=== PATIENT | male | born 1960 | race Caucasian/White ===

== ENCOUNTER 2017-04-20 11:56 | Emergency (ER) | payer BC, OTHER ==
[~2017-04-20] VITALS: Ht 188 cm; Wt 109.0 kg
[~2017-04-20 11:56] MED LIST: FLEC150T PO; LACT10CA3 PO; MELA1TAB5 PO; METO25TA3 PO; MULT-220 PO; OMEG10007 PO; RIVA1TAB4 PO
[2017-04-20 12:07] VITALS: TEMP 36.8; Ht 188 cm; Wt 109.0 kg
[2017-04-20 12:24] VITALS: O2SAT 95
--- NOTE | 2017-04-20 13:46 | EMERGENCY ROOM VISIT NOTE ---
History Report prepared by Veronica: Piyush Lenz Under the Supervision of: Dr. Karri Cervantes M.D. First contact with patient: 12:44 Chief Complaint: CARDIAC ASSESSMENT Stated Complaint: CHEST PAIN, DR REFERRED Nursing Triage Summary: pt reports he went to his cardiology office today because yesterday he was feeling bery anxious and has been dizzy at times. pt reports indigestion "but i haven't eaten since last night." pt denies any pain or shortness of breath at this time. pt reports hx of a-fib. History of Present Illness The patient is a 56 year old white male with a past medical history of atrial fibrillation who presents to the ED with intermittent lightheadedness for four days [employer]. Positive lightheadedness, anxiety, and indigestion. Negative chest pain, shortness of breath, recent travels, or leg swelling. He notes his blood pressure has been fluctuating. He recently saw his PCP and was seen for a cardiac assessment. He notes he had an ECG and there were irregularities. He was advised to come to the ED for evaluation. He denies any recent changes in his medication. He regularly takes Xarelto. He notes that he drinks caffeinated tea and he occasionally drinks alcohol. He notes he had a sinus infection and completed an antibiotic treatment of Doxycycline one week ago. He denies any other cardiac issues. Source of History: patient Position: other (global ) Quality: other (lightheadedness ) Timing: intermittent Associated Symptoms: No chest pain, No SOB Note: He notes lightheadedness, anxiety, and indigestion. He denies any recent travels or leg swelling. Review of Systems See HPI for pertinent positives and negatives. A total of ten systems were reviewed and were otherwise negative. Past Medical & Surgical Medical Problems: (1) Hernia (2) HTN (hypertension) Family History Diabetes mellitus FH: CVA (cerebrovascular accident) Heart disease Social History Smoking Status: Never Smoker Smokeless Tobacco Use: No Alcohol Use: occasionally Drug Use: none Marital Status: Housing Status: lives with family Occupation Status: employed Current/Historical Medications Scheduled Fish Oil ([place]-3), 1 CAP PO DAILY Flecainide Acetate (Flecainide Acetate), 150 MG PO BID Lactobacillus-Inulin (Culturelle), 1 CAP PO QAM Melatonin (Kp Melatonin), 1 TAB PO HS Metoprolol Succ (Toprol Xl) (Toprol-Xl), 12.5 MG PO QPM Multiple Vitamins W/ Minerals (Multi For Him), 1 TAB PO QAM Rivaroxaban (Xarelto), 1 TAB PO DAILY Allergies Coded Allergies: Amoxicillin (Unverified Allergy, Unknown, "DOESNT WORK", 04/20/17) NO KNOWN DRUG ALLERGIES (Verified Allergy, Unknown, none, 12/06/14) Uncoded Allergies: MOLD (Allergy, Mild, SHORTNESS OF BREATH, 10/30/15) TREE POLLEN (Allergy, Mild, SHORTNESS OF BREATH, 10/30/15) Physical Exam Vital Signs Date Time Temp Pulse Resp B/P (MAP) Pulse Ox O2 Delivery O2 Flow Rate FiO2 04/20/17 16:50 64 18 180/97 94 04/20/17 15:44 66 18 196/99 96 Room Air 04/20/17 13:47 65 18 151/87 95 Room Air 04/20/17 12:38 65 04/20/17 12:32 64 18 151/83 96 Room Air 04/20/17 12:30 95 Room Air 04/20/17 12:24 95 Room Air 04/20/17 12:07 36.8 61 20 184/91 97 Room Air Physical Exam GENERAL: Awake, alert, well-appearing, NAD HENT: Normocephalic, atraumatic. EYES: Normal conjunctiva. Sclera non-icteric. NECK: Supple. No nuchal rigidity. FROM. RESPIRATORY: CTAB, no rhonchi, wheezing, crackles CARDIAC: RRR, no MRG ABDOMEN: Soft, NTND, BS+ MSK: No chest wall TTP, no LE edema NEURO: GCS 15, CN 2-12 intact, moves all 4s on command SKIN: No rash or jaundice noted. Medical Decision & Procedures ER Provider Diagnostic Interpretation: Radiology results as stated below per my review and radiologist interpretation: CHEST ONE VIEW PORTABLE CLINICAL HISTORY: Chest pain. COMPARISON STUDY: Chest radiograph August 05, 2014. FINDINGS: Lung volumes are normal. There is no pneumothorax or pleural effusion. There is a possible 2.4 cm left midlung nodule. Cardiac size is within normal limits. There is no evidence of pulmonary edema. IMPRESSION: 1. Possible 2.4 cm left midlung nodule. This could reflect summation artifact however a pulmonary nodule could appear similar. A chest CT is recommended. 2. No acute cardiopulmonary findings. Electronically signed by: Nuno George M.D. 04/20/2017 1:50 PM Dictated Date/Time: 04/20/2017 1:48 PM Laboratory Results 04/20/17 12:25 Red Blood Count 5.45, Mean Corpuscular Volume 90.3, Mean Corpuscular Hemoglobin 32.1, Mean Corpuscular Hemoglobin Concent 35.6, Mean Platelet Volume 10.7, Neutrophils (%) (Auto) 60.8, Lymphocytes (%) (Auto) 25.9, Monocytes (%) (Auto) 11.3, Eosinophils (%) (Auto) 0.7, Basophils (%) (Auto) 0.9, Neutrophils # (Auto ) 4.18, Lymphocytes # (Auto) 1.78, Monocytes # (Auto) 0.78, Eosinophils # (Auto ) 0.05, Basophils # (Auto) 0.06 04/20/17 12:25 Test 04/20/17 12:25 04/20/17 12:47 White Blood Count 6.88 K/uL (4.8-10.8) Red Blood Count 5.45 M/uL (4.7-6.1) Hemoglobin 17.5 g/dL (14.0-18.0) Hematocrit 49.2 % (42-52) Mean Corpuscular Volume 90.3 fL (80-100) Mean Corpuscular Hemoglobin 32.1 pg (25-34) Mean Corpuscular Hemoglobin Concent 35.6 g/dl (32-36) Platelet Count 165 K/uL (130-400) Mean Platelet Volume 10.7 fL (7.4-10.4) Neutrophils (%) (Auto) 60.8 % Lymphocytes (%) (Auto) 25.9 % Monocytes (%) (Auto) 11.3 % Eosinophils (%) (Auto) 0.7 % Basophils (%) (Auto) 0.9 % Neutrophils # (Auto) 4.18 K/uL (1.4-6.5) Lymphocytes # (Auto) 1.78 K/uL (1.2-3.4) Monocytes # (Auto) 0.78 K/uL (0.11-0.59) Eosinophils # (Auto) 0.05 K/uL (0-0.5) Basophils # (Auto) 0.06 K/uL (0-0.2) RDW Standard Deviation 43.2 fL (36.4-46.3) RDW Coefficient of Variation 13.2 % (11.5-14.5) Immature Granulocyte % (Auto) 0.4 % Immature Granulocyte # (Auto) 0.03 K/uL (0.00-0.02) Prothrombin Time 10.9 SECONDS (9.0-12.0) Prothromb Time International Ratio 1.0 (0.9-1.1) Activated Partial Thromboplast Time 27.0 SECONDS (21.0-31.0) Partial Thromboplastin Ratio 1.0 Anion Gap 7.0 mmol/L (3-11) Est Creatinine Clear Calc Drug Dose 119.3 ml/min Estimated GFR () 108.1 Estimated GFR (Non- 93.3 BUN/Creatinine Ratio 12.0 (10-20) Calcium Level 9.1 mg/dl (8.5-10.1) Phosphorus Level 2.4 mg/dl (2.5-4.9) Magnesium Level 2.0 mg/dl (1.8-2.4) Total Bilirubin 0.6 mg/dl (0.2-1) Direct Bilirubin 0.1 mg/dl (0-0.2) Aspartate Amino Transf (AST/SGOT) 25 U/L (15-37) Alanine Aminotransferase (ALT/SGPT) 56 U/L (12-78) Alkaline Phosphatase 63 U/L (45-117) Troponin I < 0.015 ng/ml (0-0.045) Pro-B-Type Natriuretic Peptide 31 pg/ml (0-900) Total Protein 7.9 gm/dl (6.4-8.2) Albumin 4.0 gm/dl (3.4-5.0) Lipase 412 U/L (73-393) Urine Color YELLOW Urine Appearance CLEAR (CLEAR) Urine pH 7.0 (4.5-7.5) Urine Specific [place] 1.009 (1.000-1.030) Urine Protein NEG (NEG) Urine Glucose (UA) NEG (NEG) Urine Ketones NEG (NEG) Urine Occult Blood TRACE (NEG) Urine Nitrite NEG (NEG) Urine Bilirubin NEG (NEG) Urine Urobilinogen NEG (NEG) Urine Leukocyte Esterase NEG (NEG) Urine WBC (Auto) 0 /hpf (0-5) Urine RBC (Auto) 0-4 /hpf (0-4) Urine Hyaline Casts (Auto) 0 /lpf (0-5) Urine Epithelial Cells (Auto) 0-5 /lpf (0-5) Urine Bacteria (Auto) NEG (NEG) Laboratory results reviewed by me ECG Indication: other (lightheadedness) Rate (beats per minute): 61 Rhythm: sinus rhythm Findings: 1st degree AV block, RBBB, T-wave inversion (Inferior and Lateral ), other (Prolonged VA. Wide QRS) Comparison ECG Date: October 2016 Change: no significant change ED Course 1309: The patient was evaluated in room B8. A complete history and physical exam was performed. 1358: I reassessed the patient at this time. He is resting comfortably, though is anxious. 1600: I spoke with Dr. Castillo, manager truck. We discussed the patients case. 1620: I reassessed the patient at this time. He is feeling better and resting comfortably. I discussed the results and treatment plan with the patient. I answered all pertaining questions that he had. He expressed understanding and verbalized agreement. The patient will be discharged home. Medical Decision The patient is a 56 year old white male with a past medical history of atrial fibrillation who presents to the ED with intermittent lightheadedness for four days [employer]. Prior records/ancillary studies reviewed. Triage Nursing notes reviewed. The patient's history was concerning for chest pain. Differential diagnosis: Etiologies such as cardiac ischemia, aortic dissection, pulmonary embolism, pneumonia, pneumothorax, musculoskeletal, infections, pericarditis, myocarditis , esophageal rupture, gastrointestinal, as well as others were entertained. Patient was seen and evaluated the bedside. Patient did complain of some mild lightheadedness that was feeling yesterday. Patient did have some questionable palpitations. Patient of note did recently have alcohol and did have chocolate which she normally does not have. Patient does drink tea but no changes. Patient states that he spoke with the manager truck who recommended that he take an extra dose of his flecainide. Patient states that his symptoms are more or less resolved at this time. However, the patient did go to the clinic today at which point he did have an EKG which the physician's assistant coach thought was concerning and suggested that he come here. Patient did have a repeat EKG was completed which did show some T-wave inversions which appeared chronic. Patient does have an old right bundle branch block and first-degree AV block which is also old. Patient had no complaints of chest pain or shortness of breath. Patient's blood work was completed which did not show any acute abnormality. I did speak with the manager truck on-call who agreed that the patient does not need to stay in the hospital this time. Patient was told to continue his medications. Patient did have noted elevated blood pressure. Patient was told he could take an extra dose of his Toprol provided he could take his pulse and it was greater than 60 provided his blood pressure was greater than 160-180 systolic. Patient was told that if he had any symptoms like headache shortness of breath or chest pain to return for further evaluation. Patient was also told to abstain from chocolate and alcohol as these may have precipitated his symptoms. Patient's chest x-ray did show questionable pulmonary nodule for which she should follow up as an outpatient. Patient was deemed suitable for outpatient follow-up and treatment at this time. Patient was given strict follow-up, discharge, and return precautions. All questions were answered. Patient was deemed suitable for outpatient follow- up at this time. Patient agreed with the plan of care and was safely discharged home. Medication Reconcilliation Current Medication List: was personally reviewed by me Blood Pressure Screening Patient's blood pressure: Elevated blood pressure Blood pressure disposition: Referred to PCP Consults Time Called: 1524 Consulting Physician: Dr. Castillo, manager truck Returned Call: [address] Castillo, manager truck. We discussed the patients case. Impression Primary Impression: Light-headed Additional Impression: Hypertension Scribe Attestation The scribe's documentation has been prepared under my direction and personally reviewed by me in its entirety. I confirm that the note above accurately reflects all work, treatment, procedures, and medical decision making performed by me. Departure Information Dispostion Home / Self-Care Referrals Brandie Welsh M.D. (PCP) Forms IMPORTANT VISIT INFORMATION Patient Instructions Atrial Fibrillation Dc, Hypertension Dc, My [facility] Additional Instructions Please return to the emergency department if you have worsening or recurrent symptoms not amenable to at-home treatment. Please call for a follow-up appointment with her primary care physician. Please take your medications as prescribed. If you have other concerns and/or complaints please feel free to also call your primary care physician's office or return the ED for further evaluation, management, and treatment. You were found to have an elevated blood pressure today (>120 sytolic or >90 diastolic). Per medicare guidelines, you need to follow up with this blood pressure screening with your Primary Care Physician (PCP). For a new PCP call [phone]. Take your medications as prescribed. You may take 25 mg of your Toprol. Please ensure to take your pulse prior to taking her medication and do not take it if you're heart rate is less than 60. Please follow-up with your primary care and/or your manager truck as discussed. You have been examined and treated today on an emergency basis only. This is not a substitute for, or an effort to provide, complete comprehensive medical care. It is impossible to recognize and treat all injuries or illnesses in a single emergency department visit. It is therefore important that you follow up closely with [facility], your PCP, and/or your specialist(s). Call as soon as possible for an appointment. Thank you for your time and consideration. I look forward to speaking with you again soon. Please don't hesitate to call us if you have any questions. Problem Qualifiers Additional Impression: Hypertension Hypertension type: unspecified Qualified Codes: I10 - Essential (primary) hypertension
--- NOTE | 2017-04-20 13:51 | DIAGNOSTIC IMAGING REPORT ---
CHEST ONE VIEW PORTABLE CLINICAL HISTORY: Chest pain. COMPARISON STUDY: Chest radiograph August 05, 2014. FINDINGS: Lung volumes are normal. There is no pneumothorax or pleural effusion. There is a possible 2.4 cm left midlung nodule. Cardiac size is within normal limits. There is no evidence of pulmonary edema. IMPRESSION: 1. Possible 2.4 cm left midlung nodule. This could reflect summation artifact however a pulmonary nodule could appear similar. A chest CT is recommended. 2. No acute cardiopulmonary findings. Electronically signed by: Nuno George M.D. 04/20/2017 1:50 PM Dictated Date/Time: 04/20/2017 1:48 PM
[2017-04-20 14:31] LABS: BASO % 0.9 %; BASO ABS # 0.06 K/uL (0-0.2); EOS % 0.7 %; EOS ABS # 0.05 K/uL (0-0.5); HEMATOCRIT 49.2 % (42-52); HEMOGLOBIN 17.5 g/dL (14.0-18.0); IG# 0.03 K/uL (0.00-0.02); LYMPH % 25.9 %; LYMPH ABS # 1.78 K/uL (1.2-3.4); MEAN CELL VOLUME 90.3 fL (80-100); MEAN CORPUSCULAR HEMOGLOBIN 32.1 pg (25-34); MEAN CORPUSCULAR HGB CONC 35.6 g/dl (32-36); MEAN PLATELET VOLUME 10.7 fL (7.4-10.4); MONO % 11.3 %; MONO ABS # 0.78 K/uL (0.11-0.59); NEUT % 60.8 %; NEUT ABS # 4.18 K/uL (1.4-6.5); PLATELET COUNT 165 K/uL (130-400); RED CELL DISTRIBUTION WIDTH CV 13.2 % (11.5-14.5); RED CELL DISTRIBUTION WIDTH SD 43.2 fL (36.4-46.3); WHITE BLOOD COUNT 6.88 K/uL (4.8-10.8)
[2017-04-20 14:40] LABS: ALT/SGPT 56 U/L (12-78); AST/SGOT 25 U/L (15-37); BLOOD UREA NITROGEN 11 mg/dl (7-18); CALCIUM 9.1 mg/dl (8.5-10.1); CARBON DIOXIDE 26 mmol/L (21-32); CREATININE 0.92 mg/dl (0.60-1.40); GLUCOSE 90 mg/dl (70-99); LIPASE 412 U/L (73-393); POTASSIUM 3.9 mmol/L (3.5-5.1); SODIUM 137 mmol/L (136-145)
[2017-04-20 14:46] LABS: ALKALINE PHOSPHATASE 63 U/L (45-117); TOTAL PROTEIN 7.9 gm/dl (6.4-8.2)
[2017-04-20 15:05] LABS: PHOSPHORUS 2.4 mg/dl (2.5-4.9)
[2017-04-20 16:50] VITALS: BP 180/97; PULSE 64; O2SAT 94
== END 2017-04-20 16:51 | disposition home or self-care (01) ==
LOC: C.EDB 11:59
DX: R42 Dizziness and giddiness (principal); I10 Essential (primary) hypertension; I48.91 Unspecified atrial fibrillation; F41.9 Anxiety disorder, unspecified; Z79.01 Long term (current) use of anticoagulants; Z79.899 Other long term (current) drug therapy; Z83.3 Family history of diabetes mellitus; Z82.3 Family history of stroke

== ENCOUNTER → 2017-07-09 | Outpatient (CLI) | payer OTHER ==
--- NOTE | 2017-07-09 14:12 | DIAGNOSTIC IMAGING REPORT ---
(CHEST) THORAX WITHOUT CT DOSE: 733.70 mGycm HISTORY: Lung nodule PULMONARY NODULE TECHNIQUE: Multiaxial CT images of the chest were performed without contrast. A dose lowering technique was utilized adhering to the principles of ALARA. COMPARISON: Chest series 04/20/2017 FINDINGS: The lungs are clear. The mediastinal vascular structures are within normal limits. No mediastinal or hilar lymphadenopathy. No pleural effusion or pneumothorax. Limited views of the upper abdomen demonstrate a normal liver and spleen. Nodular densities seen in the patient's prior chest series appear to relate to overlap artifact. IMPRESSION: No acute process. Lungs are clear. No significant pulmonary nodularity. The above report was generated using voice recognition software. It may contain grammatical, syntax or spelling errors. Electronically signed by: Jonatan Barrios M.D. 07/09/2017 2:11 PM Dictated Date/Time: 07/09/2017 2:08 PM
== END | disposition home or self-care (01) ==
LOC: C.CTS 13:53
PROVIDERS: ATTEND Family Medicine
DX: R91.1 Solitary pulmonary nodule (principal)

== ENCOUNTER → 2017-12-07 | Outpatient (CLI) | payer OTHER ==
[~2017-12-07] MED LIST changes: +OPTIRAY 320 IV PRN
--- NOTE | 2017-12-07 08:55 | DIAGNOSTIC IMAGING REPORT ---
CT ABD/PELVIS COMBO CLINICAL HISTORY: R31.0 Gross hematuria COMPARISON STUDY: None. TECHNIQUE: Unenhanced images were obtained to the abdomen and pelvis. The patient was injected with 50 cc Optiray 320. After 5 minute delay, the patient was reimaged in a dynamic helical fashion during the additional administration of 68 cc of Optiray 320. A dose lowering technique was utilized adhering to the principles of ALARA. CT DOSE: 2656.99 mGycm FINDINGS: Lower chest: There are minor dependent atelectatic changes. Liver: The contrast-enhanced liver is normal in size, contour, and attenuation. There is no intrahepatic biliary ductal dilatation. The hepatic veins and portal veins are patent. Gallbladder: Unremarkable. Spleen: Normal in size and attenuation. Pancreas: Unremarkable. Adrenal glands: Unremarkable. Kidneys: No renal, ureteral, or bladder calculi are visualized. There is a 6 mm left renal cortical cyst. There is a mid pole right renal cortical scar. There is a 7 mm right midpole renal hypodensity. Although slightly exceeding water attenuation this likely represents a cyst. No renal pelvic or ureteral lesions are visualized. Bowel: There are no transition zones indicate bowel obstruction. There is extensive sigmoid diverticulosis. There is no current evidence for acute diverticulitis. The appendix appears normal. Peritoneum: There is no intraperitoneal free air or abdominal ascites. There are postsurgical changes of left inguinal hernia repair Vasculature: The abdominal aorta is normal in course and caliber. Adenopathy: None. Pelvic viscera: There is mild prostamegaly. Prostatic calcifications are visualized. Skeletal structures: There are bilateral L5 pars defects. There is a grade 1 spondylolisthesis of L5 on S1. IMPRESSION: 1. No renal, ureteral, or bladder calculi identified 2. Mid pole right renal cortical scar 3. Too small to characterize 7 mm mid pole right renal hypodensity, statistically representing a cyst. 4. Diverticulosis. No evidence of acute diverticulitis. Normal appendix. Electronically signed by: Gibran Mast M.D. 12/07/2017 8:54 AM Dictated Date/Time: 12/07/2017 8:41 AM
== END | disposition home or self-care (01) ==
LOC: C.CTS 08:04
PROVIDERS: ATTEND Urology
DX: R31.0 Gross hematuria (principal); K57.90 Diverticulosis of intestine, part unspecified, without perforation or abscess without bleeding

== ENCOUNTER 2021-12-23 11:31 | Observation (INO) ==
--- NOTE | 2021-12-05 15:42 | PAT Medication Instructions ---
Medication Instructions Date of Service December 05, 2021 Home Medications multivitamin (Multiple Vitamins tablet) 1 tab PO DAILY rivaroxaban 20 mg tablet 20 mg PO QPM Lactobacillus acidophilus and rhamnosus 15 billion cell capsule (Probiotic) 1 cap PO QPM Red Wine Supplement 1 cap PO QAM amlodipine 5 mg tablet 5 mg PO QPM atorvastatin 20 mg tablet 20 mg PO HS cholecalciferol (vitamin D3) 50 mcg (2,000 unit) capsule (Vitamin D3) 50 mcg PO QAM coQ10 (ubiquinol) 200 mg capsule 200 mg PO QPM cyclobenzaprine 5 mg tablet 5 mg PO DAILY PRN Pain lisinopril 40 mg tablet 40 mg PO QPM melatonin 10 mg tablet 10 - 20 mg PO HS PRN Sleep metoprolol succinate 25 mg tablet,extended release 24 hr 12.5 mg PO HS montelukast 10 mg tablet (Singulair) 10 mg PO DAILY PRN ALLERGY RELIEF ASK your prescriber and surgeon rivaroxaban 20 mg tablet 20 mg PO QPM (in order for spinal anesthesia, rivaroxaban needs to be stopped 72 hours/3 days before surgery. Please check if okay with doctor that prescribes this to you) STOP taking 2 weeks before surgery (or as soon as possible if surgery is within 2 weeks) Red Wine Supplement 1 cap PO QAM coQ10 (ubiquinol) 200 mg capsule 200 mg PO QPM DO NOT take the morning of surgery multivitamin (Multiple Vitamins tablet) 1 tab PO DAILY cholecalciferol (vitamin D3) 50 mcg (2,000 unit) capsule (Vitamin D3) 50 mcg PO QAM cyclobenzaprine 5 mg tablet 5 mg PO DAILY PRN Pain montelukast 10 mg tablet (Singulair) 10 mg PO DAILY PRN ALLERGY RELIEF Take evening before surgery Lactobacillus acidophilus and rhamnosus 15 billion cell capsule (Probiotic) 1 cap PO QPM amlodipine 5 mg tablet 5 mg PO QPM atorvastatin 20 mg tablet 20 mg PO HS cyclobenzaprine 5 mg tablet 5 mg PO DAILY PRN Pain (if needed) lisinopril 40 mg tablet 40 mg PO QPM melatonin 10 mg tablet 10 - 20 mg PO HS PRN Sleep (if needed) metoprolol succinate 25 mg tablet,extended release 24 hr 12.5 mg PO HS montelukast 10 mg tablet (Singulair) 10 mg PO DAILY PRN ALLERGY RELIEF (if needed) Other Notes If you have any questions please call us at [phone] or [phone] or [phone] or [phone]
--- NOTE | 2021-12-08 13:57 | Anesthesiology Consultation ---
Date of Service December 08, 2021 Assessment & Plan (1) Encounter for pre-operative examination: - COVID screening: Per assessment on 12/08: No known COVID-19 positive contacts or current COVID-19 related symptoms. Travel screen negative. Patient vaccinated. At surgeon discretion if preop Covid testing being done. - Outpatient joint assessment: If surgeon requests review for outpatient joint pathway, case would need to be reviewed with anesthesiologist for ultimate determination. - Cardiology office visit (11/20/21): "underlying conduction disease with bifascicular block with symptomatic paroxysmal atrial fibrillation. He had an ablation for atrial fibrillation in August 2017. Since that ablation he has done well and has had no symptomatic recurrence of atrial fibrillation.. Twelvelead ECG shows sinus rhythm at a rate of 60 bpm with a slightly prolonged NM interval of 214 MS and an underlying bifascicular block that is unchanged.. He remains on anticoagulation with a [id number] score of 1.. I am seeing him back in 1 year. From a cardiovascular assessment point of view he has very good functional capacity limited only by knee pain. He does not require any further cardiac testing prior to any planned knee intervention." - Rivaroxaban instructions: patient made aware that in order for spinal anesthesia, Rivaroxaban needs to be held 3 days/72 hours prior to surgery. Patient voiced understanding/will check if okay with prescriber. Chart Review Chart Review: Acceptable Risk for Surgery and Patient seen in Pre Admission Testing Teaching & Discussion Pre-Anesthesia Teaching/Discussion Notes: Instructed NPO after midnight before surgery,except medications with 15 cc of water. Medication instructions provided according to the PAT guidelines. History Surgery Operation Date: 12/23/21 10:40 Proposed Procedures p Left Total Knee Arthroplasty - Cuauhtemoc Timmons MD Height/Weight Height: 6 ft 2 in Weight: 138.4 kg Allergies Allergy/AdvReac Type Severity Reaction Status Date / Time amoxicillin Allergy Unknown "Doesn't Unverified 12/05/21 15:43 work" MOLD Allergy Intermediate Dyspnea Uncoded 12/05/21 15:43 TREE POLLEN Allergy Intermediate Dyspnea Uncoded 12/05/21 15:43 Medications Home Medications Medication Instructions Recorded Confirmed Last Taken multivitamin (Multiple Vitamins 1 tab PO DAILY 01/12/19 12/05/21 Unknown tablet) rivaroxaban 20 mg tablet 20 mg PO QPM 01/12/19 12/05/21 Unknown Lactobacillus acidophilus and 1 cap PO QPM 12/05/21 12/05/21 Unknown rhamnosus 15 billion cell capsule (Probiotic) Red Wine Supplement 1 cap PO QAM 12/05/21 12/05/21 Unknown amlodipine 5 mg tablet 5 mg PO QPM 12/05/21 12/05/21 Unknown atorvastatin 20 mg tablet 20 mg PO HS 12/05/21 12/05/21 Unknown cholecalciferol (vitamin D3) 50 50 mcg PO QAM 12/05/21 12/05/21 Unknown mcg (2,000 unit) capsule (Vitamin D3) coQ10 (ubiquinol) 200 mg capsule 200 mg PO QPM 12/05/21 12/05/21 Unknown cyclobenzaprine 5 mg tablet 5 mg PO DAILY PRN Pain 12/05/21 12/05/21 Unknown lisinopril 40 mg tablet 40 mg PO QPM 12/05/21 12/05/21 Unknown melatonin 10 mg tablet 10 - 20 mg PO HS PRN Sleep 12/05/21 12/05/21 Unknown metoprolol succinate 25 mg 12.5 mg PO HS 12/05/21 12/05/21 Unknown tablet,extended release 24 hr montelukast 10 mg tablet 10 mg PO DAILY PRN ALLERGY RELIEF 12/05/21 12/05/21 Unknown (Singulair) Past Medical History Medical History Atrial fibrillation Follow with Dr. Guthrie ([facility] cardio) Chronic sinus bradycardia on beta jillian Degenerative spondylolisthesis Hyperlipidemia Hypertension Obesity Psoriasis Psoriatic arthritis Sleep apnea CPAP (compliant) Exercise / Class Metabolic Activity II 4-5 Yardwork/Stairs/Walk up hill (one FS (no CP, no SOB)) Past Family History Family History Sister Family history of diabetes mellitus Mother Family history of diabetes mellitus Other No family history of adverse response to anesthesia Past Surgical History Surgical History H/O cardiac radiofrequency ablation x2 (?2019) H/O sinus surgery x2 History of anesthesia reaction Awareness with hernia surgery History of cardioversion 2016 History of colonoscopy History of ear surgery R/L ear drum surgery History of tooth extraction Hx of inguinal hernia surgery R/L Past Anesthesia History No Family Hx of Anesthesia Complications and Other (Awareness with hernia surgery (40 years ago)) History of PONV No Hx of PONV and No Hx of Motion Sickness Social History Smoking Status: Never smoker Do You Dip or Chew Tobacco: No Hx Alcohol Use: Yes Alcohol type: beer alcohol intake frequency: a few times a week Hx Substance Use: No substance use type: does not use Review of Systems Patient denies chest pain, shortness of breath, dyspnea on exertion, fever, chills, cough, wheezing, palpitations. Physical Exam Vital Signs VITALS BP 129/76 P 59 TEMP 98.2 SP02 96%RA RESP 16 PHYSICAL Full cervical extension range of motion. Full TMJ range of motion. TMD 2.5 finger breaths Mallampati Score 2 Dentition: several missing sides/molars, + upper left molar cap Lungs: clear throughout to auscultation Cardiac: regular rate and rhythm, no murmurs noted Spine: normal Carotid arteries: negative bruit Extremities: no edema Thick neck Lab Results Anesthesia Preop Results Results Anesthesia Widget: WBC 6.77 K/ul (4.8-10.8) 12/08/21 Hgb 13.9 g/dl (14.0-18.0) L 12/08/21 Hct 39.6 % (40.1-51.0) L 12/08/21 Plt 178 K/uL (130-400) 12/08/21 Na 138 mmol/L (136-145) 12/08/21 K 3.9 mmol/L (3.5-5.1) 12/08/21 Cl 105 mmol/L (98-107) 12/08/21 CO2 27 mmol/L (21-32) 12/08/21 BUN 14 mg/dl (6-23) 12/08/21 Creat 0.74 mg/dl (0.6-1.4) 12/08/21 Glucose Level 100 mg/dl (70-99(Fasting)) H 12/08/21 PT 11.5 Seconds (9.0-12.0) 12/08/21 PTT 27.3 Seconds (21.0-31.0) 12/08/21 INR 1.1 (0.9-1.1) 12/08/21 Blood Type B Positive 12/08/21 Antibody Screen NEGATIVE 12/08/21 Testing Electrocardiogram Date: 11/20/21 Sinus rhythm with first-degree AV block at 60 bpm. LAD. RBBB. T wave abnormality, consider lateral ischemia and inferior ischemia. No significant change compared to 05/12/2021 per president & founder comparison. > EKG done/reviewed at 11/20/21 cardiology preop evaluation appt* Chest X-Ray Date: 12/08/21 FINDINGS: PA and lateral chest radiographs are compared to study dated 04/20/2017 and correlated with chest CT dated 07/09/2017. The heart is mildly enlarged. The pulmonary vasculature is noncongested. There is mild bibasilar scarring/atelectasis. The lungs and pleural spaces are otherwise clear. There is no pneumothorax. The bony thorax appears intact. IMPRESSION: Mild cardiomegaly with no active disease in the chest.
[~2021-12-23 11:31] MED LIST changes: +ACETAMINOPHEN 500 MG TAB PO SCH; +BUPIVACAINE 0.5 % 5 MG/1 ML PF 10ML VIAL ONE; +BUPIVACAINE LIPOSOME/PF 266 MG, BUPIVACAINE/EPINEPHRINE 50 ML, SODIUM CHLORIDE 0.9% 30 ... INFIL SCH; +CeleBREX 200 MG CAP PO SCH; +EPINEPHrine INJ 1 MG/ML AMP ONE; +FAMOTIDINE 20 MG TAB PO SCH; -FLEC150T PO; -LACT10CA3 PO; +LR 500ML BOLUS, THEN 15ML/HR IV SCH; +LR 60ML/HR IV SCH; -MELA1TAB5 PO; -METO25TA3 PO; +METOCLOPRAMIDE HCL 10 MG TABLET PO SCH; -MULT-220 PO; -OMEG10007 PO; -OPTIRAY 320 IV PRN; -RIVA1TAB4 PO; +ROPIVACAINE 0.5% 5 MG/ML 30 ML VIAL ONE; +Scopolamine 1 MG TDSY TD SCH; +TRANEXAMIC ACID 1,000 MG **IV Intra-op IV SCH; +ceFAZolin 2000MG 2,000 MG/15 ML SYR IV SCH
--- NOTE | 2021-12-23 12:59 | History & Physical Bridge Note ---
Date of Service December 23, 2021 History & Physical Bridge Note I have examined the patient, reviewed the History & Physical and in the interval since the performance of the History & Physical I have noted the following changes of clinical significance: no changes noted
[2021-12-23] MEDS ORDERED: LIDOCAINE 2% MPF LOCAL 5 ML VIAL INFIL ONE (13:19)
[2021-12-23] MEDS ORDERED: fentaNYL citrate 100 MCG/2 ML VIAL ONE (13:19)
[2021-12-23] MEDS ORDERED: PROPOFOL IV EMULSION 10 MG/ML 20 ML VIAL IV ONE (13:19)
[2021-12-23] MEDS ORDERED: MIDAZOLAM HCL 1 MG/ML 2ML VIAL ONE ×2 (13:20→14:54)
[2021-12-23] MEDS ORDERED: BUPIVACAINE LIPOSOME 1.3% 266 MG/20 ML VIAL ONE (14:24)
[2021-12-23] MEDS ORDERED: SODIUM CHLORIDE 0.9% PF 50 ML VIAL ONE (14:24)
[2021-12-23] MEDS ORDERED: BUPIVACAINE/EPINEPHRINE 0.25% 1:200,000 30 ML VIAL ONE (14:24)
[2021-12-23] MEDS ORDERED: ceFAZolin 1000MG 1,000 MG/7.5 ML SYR IV ONE (14:56)
[2021-12-23] MEDS ORDERED: ceFAZolin 330 MG/ML 1 GM VIAL ONE (16:28)
--- NOTE | 2021-12-23 16:52 | Operative Report ---
PG Post Operative Report Pre & Post Diagnosis Operation Date: 12/23/21 14:20 Pre-Op Diagnosis: Left Knee Degenerative Joint Disease Post-Op Diagnosis: Left Knee Degenerative Joint Disease I identified the patient and participated in the time-out.: Yes Procedure Operation Date: 12/23/21 14:20 Actual Procedures p Left Total Knee Arthroplasty(Left) - Cuauhtemoc Timmons MD Surgeon Cuauhtemoc Timmons MD Retail Advertising Executive Dustin Mendoza PA-C Estimated Blood Loss 50 Findings Consistent with Post-Op Diagnosis Operative findings real advanced left knee DJD. Extensive grade 4 [id number] disease primarily medial and patellofemoral compartments. Varus deformity to his knee. Moderate-sized knee joint effusion. Specimens Left knee sent for pathology Anesthesia Type Spinal MAC Complications none Disposition Accompanied Patient To Recovery: No Indications Patient is a 61-year-old gentleman said a long history of bilateral knee pain and discomfort left side quite a bit worse than the right. He has been to extensive conservative treatment over the years which became less successful. X-rays show advanced left knee arthritis. He elected proceed with surgical treatment. Description of Procedure Operative implants consist of: 1 Biomet Vanguard size 75 left posterior stabilized femoral component. 2. Biomet size 83 tibial tray. 3. 10 mm posterior stabilized polyethylene insert. 4. 34 x 8 and half all Paller patella. The patient was taken to the operating room, identified, placed on the operating table supine position protectors were properly padded. IV antibiotics tried by anesthesia team. Spinal anesthetic and abductor canal block had been provided in the holding area. Weber catheter was placed in sterile fashion. Left thigh high tourniquet was then placed in the left lower extremities and prepped and draped in usual sterile fashion. The left leg was elevated and exsanguinated with use of an Esmarch in terms playset 300 mmHg. An anterior approach to the left knee was then performed to longitudinal incision centered over the patella. Sharp dissection was carried through subcutaneous tissue down the extensor mechanism. A medial parapatellar arthrotomy incision was made. Some subperiosteal dissection was carried out medially. The fat pad was resected from beneath the patella tendon. The lateral patellofemoral ligament was released. Patella subluxated laterally the knee was flexed. The osteophytes taken off distal femur. The ACL and PCL were then released from distal femur and the tibia subluxated anteriorly. The external tibial alignment jig was then placed in the interface the tibia and adjusted 14 mm medially. Proximal tibial cut was made remove about 2 mm of bone from the medial side. The tibia was then sized to a size 83. Attention drawn the femur. The distal femur was entered with a sharp drop with intramedullary canal was suction. A left 6 degree valgus cutting guide was placed. Distal femoral cutting block was pinned in place but distal femoral cut was made to take an additional 3 mm bone off distal femur. The femur was then sized to a size 75. The AP cutting block was pinned parallel to the epicondylar axis which was 5 degrees external rotation. Anterior cut, anterior chamfer, posterior cut, posterior chamfer cuts were made. The box cutting guide was placed in a just slight lateral and the box cut was made. The knee was flexed. The remnants of the medial and lateral menisci were excised. The osteophyte taken off the posterior aspect the femur. A trial femoral component was placed. The tibial tray was pinned in maximum external rotation and the drill and stem punch were used to create defect in proximal tibia for the tibial tray. The knee was then trialed and 10 mm insert fit most appropriately. Attention drawn the patella. The patella was cleaned of all soft tissues. Patella thickness measured 25 mm in thickness and was cut down to 15. Was sized to a size 34 patella. The lug holes were drilled for the 34 patella. The lateral osteophyte was removed. Patella button was placed. Knee was taken through range of motion patella tracked nicely with no thumbs test. Attention drawn toward placing the permanent components. All trial components were removed. Bone plug was placed in the distal femur limit blood loss. Double batch Palacos G cement was mixed. Biomet Vanguard size 75 left posterior stabilized femoral component, a size 83 tibial tray, 10 mm posterior stabilized polyethylene insert, and a 34 x 8 and half all Paller patella were then cemented in place. The knee was brought out into full extension until the cement hardened. Final cement check was then performed. The pericapsular tissues were injected with total of 100 cc of combination of 20 cc of Exparel, 30 cc normal saline, 50 cc of quarter percent Marcaine with epinephrine. Patient did receive 1 g tranexamic acid. The tourniquet was then let down for final tourniquet time of 61 minutes. Hemostasis assured use electrocautery. Extensor mechanism closed with combination 1 PDS suture #1 Vicryl suture in a [id number] fashion with extensor mechanism checked found to be intact the subcutaneous tissue then closed with 2 Dexon suture in a buried interrupted fashion. Skin was then closed with skin dave. Leg was then cleaned and dried a sterile dressing was Xeroform, 4 x 4's, sterile cast padding, Adelfo bandage applied. Patient then transferred to the recovery room in stable condition. The patient tolerated the procedure well and there were no complications. Dustin Mendoza, my physician assistant floor covering printer, was present for the entire procedure. His assistance was essential and required for appropriate patient positioning, prepping and draping, surgical exposure, performing the technical details of the operation, placement the implants, closure of the wound, and placement of the sterile bandage. I attest to the content of the Intraoperative Record and any orders documented therein. Any exceptions are noted below.
--- NOTE | 2021-12-23 17:19 | XRay Report ---
XR knee LT 1 or 2V routine HISTORY: 61 years-old Male Surgical Post Op left knee total joint arthroplasty COMPARISON: Knee radiographs 10/04/2020 TECHNIQUE: 2 views of the left knee FINDINGS: Satisfactory alignment of the total joint arthroplasty and patella resurfacing. Anterior midline skin dave are noted along with expected postoperative soft tissue swelling with deep tissue air. No ac deric fracture or unexpected opaque foreign body. IMPRESSION: Total joint arthroplasty with expected postoperative changes. ACT 112: Negative or not required by law. The above report was generated using voice recognition software. It may contain grammatical, syntax o r spelling errors. Electronically signed by: Kp Donahue M.D. 12/23/2021 5:18 PM
--- NOTE | 2021-12-23 17:58 | Anesthesiology Progress Note ---
Date of Service December 23, 2021 Anesthesia Post Procedure Vital Signs Vital Signs: Temp Pulse Pulse Resp BP BP Pulse Ox 12/23/21 17:30 97.0 F L 61 12 137/67 98 12/23/21 17:40 63 14 148/70 H 98 12/23/21 17:20 64 18 130/64 98 12/23/21 17:10 69 20 134/67 98 12/23/21 17:00 61 12 120/60 97 12/23/21 16:50 60 18 103/57 L 99 12/23/21 16:41 97.3 F L 64 16 109/57 L 98 12/23/21 11:50 98.4 F 62 20 142/76 H 96 O2 Del Method O2 Flow Rate 12/23/21 17:30 Room Air 12/23/21 17:40 Room Air 12/23/21 17:20 Room Air 12/23/21 17:10 Room Air 12/23/21 17:00 Room Air 12/23/21 16:50 Oxymask 3 12/23/21 16:41 Oxymask 6 12/23/21 11:50 Room Air Transfer of Care Handoff Completed per policy Notes Mental Status: alert / awake / arousable and participated in evaluation Patient Amnestic to Procedure: Yes Nausea / Vomiting: adequately controlled Pain: adequately controlled Airway Patency, RR, SpO2: stable & adequate BP & HR: stable & adequate Hydration State: stable & adequate Neuraxial Anesthesia: was administered and sensory block is resolving Anesthetic Complications: no major complications apparent and Pt Satisfied with anesthetic care
[2021-12-23] MEDS ORDERED: bisacodyL 10 MG SUPP PR PRN (18:01)
[2021-12-23] MEDS ORDERED: MONTELUKAST SODIUM 10 MG TABLET PO PRN (18:01)
[2021-12-23] MEDS ORDERED: TAMSULOSIN HCL 0.4 MG CAP PO PRN (18:01)
[2021-12-23] MEDS ORDERED: MAGNESIUM HYDROXIDE SUSP 30 ML UDC PO PRN (18:01)
[2021-12-23] MEDS ORDERED: METOCLOPRAMIDE HCL INJ 5 MG/ML 2 ML VIAL IV PRN (18:01)
[2021-12-23] MEDS ORDERED: ONDANSETRON INJ 2 MG/ML 2 ML VIAL IV PRN (18:01)
[2021-12-23] MEDS ORDERED: HYDROmorphone INJ 0.5 MG/0.5 ML SYR IV PRN (18:01)
[2021-12-23] MEDS ORDERED: CYCLOBENZAPRINE HCL 5 MG TAB PO PRN (18:01)
[2021-12-23] MEDS ORDERED: diphenhydrAMINE Capsule 25 MG CAP PO PRN (18:01)
[2021-12-23] MEDS ORDERED: ALUMINUM/MAGNESIUM SUSP 30 ML UDC PO PRN (18:01)
[2021-12-23] MEDS ORDERED: NALOXONE HCL 0.4 MG/1 ML VIAL/CARP IV PRN (18:01)
[2021-12-23] MEDS: Scopolamine CHECK PATCH PLACEMENT SCH ×2 (18:05→23:59)
[2021-12-23] MEDS: SODIUM CHLORIDE 0.9% 1000ML 1,000 ML IV SCH (18:18)
[2021-12-23] MEDS ORDERED: MELATONIN 3 MG TAB PO PRN (18:19)
[2021-12-23] MEDS: KETOROLAC 30 MG/ML VIAL IV SCH (18:31)
[2021-12-23] MEDS: ASCORBIC ACID 500 MG TAB PO SCH (18:31)
[2021-12-23] MEDS: traMADol HCL 50 MG TABLET PO PRN (20:34)
[2021-12-23] MEDS: DOCUSATE SODIUM 100 MG CAP PO SCH (20:35)
[2021-12-23] MEDS ORDERED: ADVANCED PROBIOTIC 1250 MG CAPSULE PO SCH (21:00)
[2021-12-23] MEDS ORDERED: DOCUSATE SODIUM/SENNA 50/8.6MG TAB PO SCH (21:00)
[2021-12-23] MEDS ORDERED: lisinopril 40 MG TAB PO SCH (21:00)
[2021-12-23] MEDS ORDERED: amLODIPine BESYLATE 5 MG TAB PO SCH (21:00)
[2021-12-23] MEDS ORDERED: SENNA 8.6 MG TAB PO SCH (21:00)
[2021-12-23] MEDS ORDERED: ATORVASTATIN 20 MG TAB PO SCH (21:00)
[2021-12-23] MEDS ORDERED: NON-FORMULARY MEDICATION (Coq10 (Ubiquinol) 200 mg Capsule) PO SCH (21:00)
[2021-12-23] MEDS ORDERED: METOPROLOL SUCC 25MG EXT REL TAB PO SCH (21:00)
[2021-12-23] MEDS: ACETAMINOPHEN 500 MG TAB PO SCH (22:02)
[2021-12-23] MEDS ORDERED: TRANEXAMIC ACID / 0.7% NACL 1,000 MG/100 ML BAG IV SCH (22:45)
[2021-12-23] MEDS: ceFAZolin 2000MG 2,000 MG/15 ML SYR IV SCH (23:58)
[2021-12-24] MEDS: KETOROLAC 30 MG/ML VIAL IV SCH ×3 (00:02→13:19)
[2021-12-24] MEDS: SODIUM CHLORIDE 0.9% 1000ML 1,000 ML IV SCH (04:06)
[2021-12-24] MEDS: ACETAMINOPHEN 500 MG TAB PO SCH ×2 (06:10→13:20)
[2021-12-24] MEDS: ceFAZolin 2000MG 2,000 MG/15 ML SYR IV SCH (06:11)
[2021-12-24 06:36] LABS: Hematocrit (blood only) 34.1 % (40.1-51.0); Hemoglobin 11.7 g/dl (14.0-18.0); Mean Corpuscular Hemoglobin 31.4 pg (25.0-34.0); Mean Corpuscular Hgb Conc 34.3 g/dL (32.0-36.0); Mean Corpuscular Volume 91.4 fL (80.0-100.0); Mean Platelet Volume 10.2 fL (9.4-12.4); Platelet Count 150 K/uL (130-400); RDW Coefficient of Variation 13.2 % (11.5-14.5); RDW Standard Deviation 43.1 fL (36.4-46.3); Red Blood Count 3.73 M/uL (4.63-6.08); White Blood Count 8.37 K/ul (4.8-10.8)
[2021-12-24 07:09] LABS: BUN Creatinine Ratio 24.7 (10-20); Calcium 8.3 mg/dl (8.5-10.1); Creatinine Clr Calc Pharmacy 158.6 ml/min; Est GFR (African American) 116.9 ml/min; Est GFR (Non-African American) 100.8 ml/min; Potassium 4.4 mmol/L (3.5-5.1)
[2021-12-24] MEDS: DOCUSATE SODIUM 100 MG CAP PO SCH (07:48)
[2021-12-24] MEDS: ASCORBIC ACID 500 MG TAB PO SCH ×2 (07:48→16:12)
[2021-12-24] MEDS: Scopolamine CHECK PATCH PLACEMENT SCH ×2 (07:49→16:11)
[2021-12-24] MEDS: traMADol HCL 50 MG TABLET PO PRN ×2 (07:58→17:21)
[2021-12-24] MEDS ORDERED: dexAMETHasone 10 MG in SYRINGE 0 ML IV SCH (08:00)
[2021-12-24] MEDS ORDERED: POLYETHYLENE (MIRALAX) 17 GM PACK PO SCH ×2 (09:00)
[2021-12-24] MEDS ORDERED: MULTIVITAMIN TAB PO SCH (09:00)
[2021-12-24] MEDS ORDERED: [UNRECOGNIZED DRUG - OTHER] PO SCH (09:00)
[2021-12-24] MEDS ORDERED: ASPIRIN 81 MG ECTAB PO SCH (09:00)
[2021-12-24] MEDS ORDERED: CHOLECALCIFEROL 1,000 UNITS 25 MCG TAB PO SCH (09:00)
[2021-12-24] MEDS ORDERED: RIVAROXABAN 10 MG TABLET PO SCH (17:00)
--- NOTE | 2021-12-24 17:22 | Progress Notes ---
DATE OF SERVICE: 12/24/2021. SUBJECTIVE: A 61-year-old gentleman, postoperative day 1 from a left knee replacement. He is doing pretty well. Really not much pain at all while resting comfortably, but pretty sore when he is walki ng. No chest pain or shortness of breath. Not feeling dizzy or lightheaded. OBJECTIVE: VITAL SIGNS: Temperature 37.3. Vital signs are stable. GENERAL: Pleasant middle-aged male. He is lying in bed, looks pretty comfortable. LUNGS: Clear to auscultation. HEART: Regular rate and rhythm. ABDOMEN: Soft, nontender, nondistended. EXTREMITIES: Grossly neurovascularly intact except as follows. Examination of the left leg reveals the leg to be well aligned. Dressing is in place. There is a li ttle bit of bloody spotty drainage on the Adelfo bandage. He can dorsiflex and plantarflex his foot bernadine ropriately. He is neurologically intact. LABORATORY DATA: Hemoglobin 11.4. Hematocrit 34.1. Electrolytes are stable. ASSESSMENT: A 61-year-old gentleman postoperative day 1 from a left knee replacement, doing pretty w ell. His pain is reasonably well controlled. He is neurologically intact. PLAN: 1. DVT prophylaxis including thigh-high TEDs, SCDs, and he is back on his Xarelto at a prophylactic level dose for now. 2. PT, OT, weightbear as tolerated. Left total knee protocol. 3. Pain control, doing okay with current pain regimen. 4. Disposition: Plan to discharge to home with some home health and his mom's assistance. We will see how therapy goes today. Job ID: [id number]
--- NOTE | 2021-12-27 14:49 | Discharge Summary ---
Date of Service December 27, 2021 Discharge Data Procedures Performed Operation Date: 12/23/21 14:20 Actual Procedures p Left Total Knee Arthroplasty(Left) - Cuauhtemoc Timmons MD Hospital Course (1) Status post total left knee replacement: This is a 61 year old patient admitted on 12/23/21 and underwent total knee arthroplasty. He tolerated the procedure well and there were no complications. Transferred to the PACU post op and later to the orthopedic floor for further care. He was given ancef for antibiotic prophylaxis. He was also given ERIK stockings, SCDs, and xarelto for DVT prophylaxis. Hemoglobin, hematocrit, and vital signs were monitored during his hospital stay and remained stable. Did not require any blood transfusions. There were no complications during his hospital stay. By post op day #1 the patient was tolerating a regular diet, pain was reasonably controlled with oral pain medicine, and he was participating in physical therapy. On post op day #1 the patient was discharged home and set up with home health care. He was given printed discharge instructions including prescriptions for extra strength tylenol, xarelto, zofran, senokot, and tramadol. Continue physical therapy, weight bearing as tolerated. Continue ERIK stockings. Follow up approximately 2 weeks post op or sooner if there are problems or concerns. Coding Level of Care Code None Diagnoses Status post total left knee replacement Z96.652
== END 2021-12-24 18:25 | disposition home health service (06) ==
LOC: ASU 11:31 → 3E 11:31

== ENCOUNTER 2023-01-22 16:03 | Inpatient (IN) ==
[2023-01-22 16:40] LABS: Basophils # (auto) 0.07 K/uL (0.00-0.20); Basophils % (auto) 0.5 %; Eosinophils % (auto) 0.7 %; Hematocrit (blood only) 41.8 % (42.0-52.0); Immature Granulocytes # (auto) 0.14 K/uL (0.01-0.20); Lymphocytes # (auto) 1.58 K/uL (1.20-3.40); Lymphocytes % (auto) 11.5 %; Mean Corpuscular Hemoglobin 31.6 pg (25.0-34.0); Mean Corpuscular Hgb Conc 35.9 g/dL (32.0-36.0); Mean Platelet Volume 9.3 fL (9.4-12.4); Monocytes # (auto) 1.78 K/uL (0.11-0.59); Neutrophils # (auto) 10.06 K/uL (1.40-6.50); Neutrophils % (auto) 73.3 %; Platelet Count 275 K/uL (130-400); RDW Coefficient of Variation 12.2 % (11.5-14.5); RDW Standard Deviation 39.6 fL (36.4-46.3); Red Blood Count 4.75 M/uL (4.70-6.10); White Blood Count 13.73 K/ul (4.8-10.8)
[2023-01-22 17:06] LABS: Albumin Globulin Ratio 1.2 (0.9-2); BUN Creatinine Ratio 15.4 (10-20); Bilirubin,Total 0.9 mg/dl (0.2-1.0); Calcium 9.4 mg/dl (8.6-10.3); Creatinine Clr Calc Pharmacy 124.3 ml/min; Est GFR (African American) 105.1 ml/min; Est GFR (Non-African American) 90.6 ml/min; Globulin 3.3 gm/dl (2.5-4.0); Potassium 4.4 mmol/L (3.5-5.1); Total Protein 7.3 gm/dl (6.0-8.3)
[2023-01-22] MEDS ORDERED: PIPERACILLIN/TAZOBACTAM 4.5 GM/100 ML BAG IV ONE (17:09)
--- NOTE | 2023-01-22 17:48 | Emergency Department Note ---
Impression & Plan Diverticulitis of intestine with abscess ED Provider Note HISTORY OF PRESENT ILLNESS: Patient is a 62-year-old male presenting with abdominal pain and abnormal CT findings. Patient reports he has been having left lower quadrant abdominal pain and intermittent fevers over the last week. He states that in the last few days the pain has become more persistent. He reports a fever up to 103 earlier this week. He has not taken anything for the pain today. He saw his primary care provider who ordered an outpatient CT scan that showed diverticulitis with a developing abscess. Patient states that he has been on amoxicillin for the last week for an upper respiratory infection. Denies any chest pain or shortness of breath. Denies any dysuria or hematuria ROS: as above PHYSICAL EXAM: Constitutional: Patient appears in no acute distress. HENT: Head: Normocephalic and atraumatic. Eyes: EOMI, PERRL Mouth/Throat: Mucous membranes moist. Neck: Trachea midline. Neck supple. Cardiovascular: RRR, No murmurs, rubs or gallops. Intact distal pulses. Pulmonary/Chest: No respiratory distress. Breath sounds clear and equal bilaterally. No wheezes or rales. Abdominal: Abdomen soft, no rebound or guarding. LLQ TTP Musculoskeletal: No edema, tenderness or deformity noted. Skin: Warm and dry. No rash, erythema, pallor or cyanosis Psychiatric: Appropriate mood and affect for situation. Neurological: Alert and keenly responsive. CN II-XII grossly intact, moving all extremities equally and fully. MDM: - Vitals signs stable. - History obtained via patient. Patient presents with left lower quadrant abdominal pain. Patient reports has been having abdominal pain for the last week and intermittent fevers at home. He had outpatient CT imaging performed by his primary care provider which showed diverticulitis with a diverticular abscess. He denies any nausea or vomiting. Denies any dysuria or hematuria. - Chronic conditions affecting care: Afib; HTN; HLD - Differential diagnoses include, but are not limited to: diverticulitis; inguinal hernia; testicular torsion; ureteral calculi - Order placed for continuous cardiac monitoring. At this time, monitor showed rate of 85 bpm with normal sinus rhythm, per my interpretation. - External medical records reviewed. CT abdomen/pelvis with IV contrast obtained earlier today showed prominent wall thickening of the sigmoid colon with numerous diverticula. Also noted to have a enhancing fluid collection of the wall of the bowel measuring up to 16 mm. - Laboratory workup interpreted by myself showed leukocytosis (WBC 13.73); slight hyponatremia (Na 132); normal lipase - Patient given IV zosyn in ER for antibiotic coverage. - Offered patient pain medication, but he declined at this time. - Discussed case with general surgeon, Dr. Cisneros. She recommended admission to medicine for IV antibiotic treatment. - Discussion was had with social service manager about patient's case and need for admis madina. - Hospitalist consulted for admission - [facility] ASSESSMENT AND PLAN: Diagnosis: Diverticulitis with abscess Plan: admit Past Med/Surg History Medical History Atrial fibrillation Chronic sinus bradycardia Degenerative spondylolisthesis Hyperlipidemia Hypertension Obesity Psoriasis Psoriatic arthritis Right knee DJD Sleep apnea Surgical History H/O cardiac radiofrequency ablation H/O sinus surgery History of anesthesia reaction History of cardioversion History of colonoscopy History of ear surgery History of tooth extraction Hx of inguinal hernia surgery Status post total left knee replacement Family History Sister Family history of diabetes mellitus Mother Family history of diabetes mellitus Other No family history of adverse response to anesthesia Social History Smoking Status: Never smoker Second Hand Exposure: No; Do You Dip or Chew Tobacco: No; Hx Alcohol Use: Yes Alcohol type: beer Hx Substance Use: No Preferred Language: Slovenian Communication Ability: Effective Inspector Structural Bonding Required: No Beliefs That Will Affect Care: None Current Living Situation: Spouse and Family Feels Safe at Home: Yes Assistive Devices: CPAP Allergies Allergies Allergy/AdvReac Type Severity Reaction Status Date / Time amoxicillin Allergy Unknown "Doesn't Verified 01/22/23 17:43 work" MOLD Allergy Intermediate Dyspnea Uncoded 01/22/23 17:43 TREE POLLEN Allergy Intermediate Dyspnea Uncoded 01/22/23 17:43 Home Meds Home Medications Medication Instructions Recorded Confirmed multivitamin (Multiple Vitamins 1 tab PO DAILY 01/12/19 01/22/23 tablet) rivaroxaban 20 mg tablet 20 mg PO QPM 01/12/19 01/22/23 Lactobacillus acidophilus and 1 cap PO QPM 12/05/21 01/22/23 rhamnosus 15 billion cell capsule (Probiotic) Red Wine Supplement 1 cap PO QAM 12/05/21 01/22/23 atorvastatin 20 mg tablet 20 mg PO HS 12/05/21 01/22/23 cholecalciferol (vitamin D3) 50 50 mcg PO QAM 12/05/21 01/22/23 mcg (2,000 unit) capsule (Vitamin D3) coQ10 (ubiquinol) 200 mg capsule 200 mg PO QPM 12/05/21 01/22/23 cyclobenzaprine 5 mg tablet 5 mg PO DAILY PRN Pain 12/05/21 01/22/23 lisinopril 40 mg tablet 40 mg PO QPM 12/05/21 01/22/23 melatonin 10 mg tablet 10 - 20 mg PO HS PRN Sleep 12/05/21 01/22/23 montelukast 10 mg tablet 10 mg PO DAILY PRN ALLERGY RELIEF 12/05/21 01/22/23 (Singulair) amlodipine 2.5 mg tablet 2.5 mg PO QAM 01/22/23 01/22/23 amoxicillin 875 mg-potassium 1 tab PO BID 01/22/23 01/22/23 clavulanate 125 mg tablet calcipotriene 0.005 % topical 1 applic topical DAILY 01/22/23 01/22/23 ointment clobetasol 0.05 % topical ointment 1 applic topical DAILY 01/22/23 01/22/23 dronedarone 400 mg tablet (Multaq) 400 mg PO BID 01/22/23 01/22/23 Previous Rx's Medication Instructions Recorded Wheeled Walker #1 ea 12/11/21 acetaminophen 500 mg capsule 1,000 mg PO TID Pain 30 days #180 12/19/21 caps Results & Data (ED) Vital Signs Vital Signs - 24 hr 01/22/23 16:05 Temperature 36.7 C Temperature Source Temporal Artery Scan Pulse Rate 84 Respiratory Rate 18 Respiratory Effort / Characteristics Non-Labored Respiratory Depth Normal Blood Pressure 147/81 H Blood Pressure Mean 103 Pulse Oximetry 98 Oxygen Delivery Method Room Air Sepsis Recent Fever Within 48 Hours Yes Sepsis New/Unexplained Change in Mental Status No Sepsis Action Taken by Nursing No Action Required Laboratory Data 01/22/23 16:22 01/22/23 16:22 Lab Results 01/22/23 01/22/23 01/22/23 Range/Units 16:22 16:22 16:22 WBC 13.73 H (4.8-10.8) K/ul RBC 4.75 (4.70-6.10) M/uL Hgb 15.0 (14.0-18.0) g/dl Hct 41.8 L (42.0-52.0) % MCV 88.0 (80.0-100.0) fL MCH 31.6 (25.0-34.0) pg MCHC 35.9 (32.0-36.0) g/dL RDW Std Deviation 39.6 (36.4-46.3) fL RDW Coeff of Lizette 12.2 (11.5-14.5) % Plt Count 275 (130-400) K/uL MPV 9.3 L (9.4-12.4) fL Immature Gran % (Auto) 1.0 % Neut % (Auto) 73.3 % Lymph % (Auto) 11.5 % Knott % (Auto) 13.0 % Eos % (Auto) 0.7 % Baso % (Auto) 0.5 % Neut # (Auto) 10.06 H (1.40-6.50) K/uL Lymph # (Auto) 1.58 (1.20-3.40) K/uL Knott # (Auto) 1.78 H (0.11-0.59) K/uL Eos # (Auto) 0.10 (0.00-0.50) K/uL Baso # (Auto) 0.07 (0.00-0.20) K/uL Immature Gran # (Auto) 0.14 (0.01-0.20) K/uL Sodium 132 L (136-145) mmol/L Potassium 4.4 (3.5-5.1) mmol/L Chloride 100 (98-107) mmol/L Carbon Dioxide 25 (21-32) mmol/L Anion Gap 7 (3-11) BUN 14 (6-23) mg/dl Creatinine 0.91 (0.6-1.4) mg/dl Est Cr Clr Drug Dosing 124.3 ml/min Est GFR ( Amer) 105.1 ml/min Est GFR (Non-Af Amer) 90.6 ml/min BUN/Creatinine Ratio 15.4 (10-20) Glucose 112 H (70-99(Fasting)) mg/dl Lactate 1.0 (0.4-2.0) mmol/L Calcium 9.4 (8.6-10.3) mg/dl Total Bilirubin 0.9 (0.2-1.0) mg/dl AST 16 (13-39) U/L ALT 18 (7-52) U/L Alkaline Phosphatase 63 (34-104) U/L Total Protein 7.3 (6.0-8.3) gm/dl Albumin 4.0 (3.4-5.0) gm/dl Globulin 3.3 (2.5-4.0) gm/dl Albumin/Globulin Ratio 1.2 (0.9-2) Lipase 22 (11-82) U/L Administered Medications Sodium Chloride (Nss) 1,000 mls @ 999 mls/hr IV .Q1H1M ONE Stop: 01/22/23 19:08 Last Admin: 01/22/23 18:20 Dose: 999 mls/hr Documented By: APARNA Discontinued Medications Piperacillin Sod/Tazobactam Sod (Zosyn) 4.5 gm in 100 mls @ 200 mls/hr IV NOW ONE Stop: 01/22/23 17:38 Last Admin: 01/22/23 18:19 Dose: 200 mls/hr Documented By: APARNA Discharge Plan Visit Data Chief Complaint: Referred by Doctor Stated Complaint: REF BY FOR SCAN ED Provider: Karime Chapin Discharge Problem: Diverticulitis of intestine with abscess Forms Stand Alone Forms: [facility] [employer] Prescriptions Prescriptions: No Action (DME) Timothy Suero See Rx Instructions .MEDSUPPLY Qty: 1 0RF Rx Instructions: As directed acetaminophen 500 mg capsule 1,000 mg PO TID 30 Days Qty: 180 0RF Rx Instructions: Take 3 times per day to lessen pain. rivaroxaban 20 mg tablet 20 mg PO QPM multivitamin [Multiple Vitamins] tablet 1 tab PO DAILY atorvastatin 20 mg Tablet 20 mg PO HS montelukast [Singulair] 10 mg Tablet 10 mg PO DAILY PRN (Reason: ALLERGY RELIEF) lisinopril 40 mg Tablet 40 mg PO QPM cyclobenzaprine 5 mg Tablet 5 mg PO DAILY PRN (Reason: Pain) melatonin 10 mg Tablet 10 - 20 mg PO HS PRN (Reason: Sleep) cholecalciferol (vitamin D3) [Vitamin D3] 50 mcg (2,000 unit) Capsule 50 mcg PO QAM coQ10 (ubiquinol) 200 mg Capsule 200 mg PO QPM Probiotic 15 billion cell Capsule 1 cap PO QPM Red Wine Supplement 1 cap PO QAM amlodipine 2.5 mg tablet 2.5 mg PO QAM clobetasol 0.05 % ointment 1 applic TOPICAL DAILY amoxicillin-pot clavulanate 875-125 mg tablet 1 tab PO BID Rx Instructions: Start Date 01/19/23 - End Date 01/26/23 calcipotriene 0.005 % ointment 1 applic TOPICAL DAILY Multaq 400 mg tablet 400 mg PO BID Rx Instructions: 4AM AND 4PM Referrals Referrals: Brandie Welsh [Primary Care Provider] -
[2023-01-22] MEDS ORDERED: SODIUM CHLORIDE 0.9% 1,000 ML IV ONE (18:08)
--- NOTE | 2023-01-22 19:02 | History & Physical Report ---
Date of Service January 22, 2023 Assessment & Plan (1) Diverticulitis of intestine with abscess: (2) HTN (hypertension): (3) Apnea, sleep: (4) Hyperlipidemia: (5) Psoriasis: (6) Atrial fibrillation: (7) GERD (gastroesophageal reflux disease): Plan Pt is a 62 year old male with PMHx significant for Afib, HTN, HLD, psoriasis, and sleep apnea presenting with abdominal pain. Patient afebrile at time of presentation, though WBC count was elevated at 13.73. CT abdomen/pelvis porter ggestive of diverticulitis with note of abscess developing in bowel wall. #Diverticulitis with abscess: - Admit to med/surg - NPO, sips of water for PO meds okay - Continue IV maintenance fluids - Start IV zosyn 4.5 g Q8H - IV acetaminophen, morphine prn for pain control - Consult general surgery - Blood cx pending #Afib: - Continue Multaq and rivaroxaban - EKG ordered #HTN: - Continue lisinopril and amlodipine #HLD: - Continue atorvastatin #Psoriasis: - Continue calcipotriene and clobetasol #Sleep apnea: - continue nighttime CPAP use Dispo: Med/Surg Diet: NPO VTE ppx: Rivaroxaban Code: Full Code History of Present Illness Chief Complaint: abdominal pain Primary Care Provider: Brandie Welsh Pt is a 62 year old male with PMHx significant for Afib, HTN, HLD, psoriasis, and sleep apnea presenting with abdominal pain that began about 1 week ago. Patient describes the pain as a sharp and intermittent in the suprapubic region. Patient notes that he had been having fevers as recently as last night, none today. Has also had very poor appetite for the past week, denies associated nausea and vomiting but states that he has been having diarrhea, most recently this afternoon. Also notes associated heartburn and increased belching. Denies previous history of diverticulitis. Of note, patient states that he has had a series of upper respiratory infections over the past month, was taking amoxicillin at the time of admission. ED Course: Lab work up significant for elevated WBC count of 13.[address] abdomen/pelvis noted prominent sigmoid diverticulosis with suggestion of developing abscess in the bowel wall. No pneumoperitoneum noted, through perforation cannot be entirely excluded. Pt given bolus of IV fluids and started on Zosyn. Allergies Allergy/AdvReac Type Severity Reaction Status Date / Time mold Allergy Intermediate Dyspnea Verified 01/23/23 00:49 tree and shrub pollen Allergy Intermediate Dyspnea Verified 01/23/23 00:49 amoxicillin Allergy Unknown "Doesn't Verified 01/22/23 17:43 work" Home Medications Medication Instructions Recorded Confirmed Type multivitamin (Multiple Vitamins 1 tab PO DAILY 01/12/19 01/22/23 History tablet) rivaroxaban 20 mg tablet 20 mg PO QPM 01/12/19 01/22/23 History Lactobacillus acidophilus and 1 cap PO QPM 12/05/21 01/22/23 History rhamnosus 15 billion cell capsule (Probiotic) Red Wine Supplement 1 cap PO QAM 12/05/21 01/22/23 History atorvastatin 20 mg tablet 20 mg PO HS 12/05/21 01/22/23 History cholecalciferol (vitamin D3) 50 50 mcg PO QAM 12/05/21 01/22/23 History mcg (2,000 unit) capsule (Vitamin D3) coQ10 (ubiquinol) 200 mg capsule 200 mg PO QPM 12/05/21 01/22/23 History cyclobenzaprine 5 mg tablet 5 mg PO DAILY PRN Pain 12/05/21 01/22/23 History lisinopril 40 mg tablet 40 mg PO QPM 12/05/21 01/22/23 History melatonin 10 mg tablet 10 - 20 mg PO HS PRN Sleep 12/05/21 01/22/23 History montelukast 10 mg tablet 10 mg PO DAILY PRN ALLERGY RELIEF 12/05/21 01/22/23 History (Singulair) Wheeled Walker #1 ea 12/11/21 01/09/22 Rx acetaminophen 500 mg capsule 1,000 mg PO TID Pain 30 days #180 12/19/21 01/22/23 Rx caps amlodipine 2.5 mg tablet 2.5 mg PO QAM 01/22/23 01/22/23 History amoxicillin 875 mg-potassium 1 tab PO BID 01/22/23 01/22/23 History clavulanate 125 mg tablet calcipotriene 0.005 % topical 1 applic topical DAILY 01/22/23 01/22/23 History ointment clobetasol 0.05 % topical ointment 1 applic topical DAILY 01/22/23 01/22/23 History dronedarone 400 mg tablet (Multaq) 400 mg PO BID 01/22/23 01/22/23 History Past Med/Surg History Medical History Atrial fibrillation Follow with Dr. Guthrie ([facility] cardio) last visit 02/26/22 Chronic sinus bradycardia on beta jillian Degenerative spondylolisthesis Hyperlipidemia Hypertension Obesity Psoriasis Psoriatic arthritis Right knee DJD Sleep apnea CPAP (compliant) Surgical History H/O cardiac radiofrequency ablation x2 (?2019) H/O sinus surgery x2 History of anesthesia reaction Awareness with hernia surgery History of cardioversion 2015 History of colonoscopy History of ear surgery R/L ear drum surgery History of tooth extraction Hx of inguinal hernia surgery R/L Status post total left knee replacement 12/23/21: SAB at L3-L4 + PNB. 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 Beliefs That Will Affect Care: None Current Living Situation: Spouse and Family Other Information That Helps Us Care for You: No Feels Safe at Home: Yes Safety Concerns: Feels Safe At This Time Assistive Devices: CPAP, Glasses, Hospital Bed and Walker Review of Systems Review of Systems: All systems reviewed & are unremarkable except as noted in HPI & below Physical Exam Constitutional: WD/WN, vitals as above no acute distress Respiratory: normal respiratory effort, lungs clear to auscultation Cardiovascular: RRR, no murmur, no edema Gastrointestinal (Abdomen): Non-distended, bowel sounds intact, abdomen mildly tender to palpation in LLQ, more pronounced tenderness with palpation over suprapubic region Skin: no rashes, warm and dry Psychiatric: A+Ox3, euthymic affect Results & Data Results & Data Vital Signs (Past 12 Hours) Vital Signs Temp Pulse Resp BP Pulse Ox O2 Del Method 01/22/23 16:05 36.7 C 84 18 147/81 H 98 Room Air Laboratory Results Abnormal lab results 01/22/23 01/22/23 Range/Units 16:22 16:22 WBC 13.73 H (4.8-10.8) K/ul Hct 41.8 L (42.0-52.0) % MPV 9.3 L (9.4-12.4) fL Neut # (Auto) 10.06 H (1.40-6.50) K/uL Love # (Auto) 1.78 H (0.11-0.59) K/uL Sodium 132 L (136-145) mmol/L Glucose 112 H (70-99(Fasting)) mg/dl Diagnostic Findings CT abd pelvis oral and IV con CLINICAL HISTORY: K52.9 GASTROENTERITIS/COLITIS TECHNIQUE: Helical axial images of the abdomen and pelvis were obtained and displayed. Automated dose lowering techniques and/or adjustment according to pa tient size were utilized for this exam. This exam was performed with intravenous contrast. CT DOSE: 1530.33 mGy.cm COMPARISON: Comparison is made to CT abdomen pelvis 12/07/2017 FINDINGS: Lower chest: Bibasilar atelectasis versus scarring is seen. Liver: Unremarkable. No focal lesions are seen. Gallbladder and biliary tree: No calcified gallstones. Normal caliber wall. No intra- or extrahepatic biliary ductal dilation. Pancreas: Unremarkable, no focal lesions. Spleen: Unremarkable. Adrenals: Unremarkable. Kidneys and ureters: Subcentimeter hypodensities are too small to characterize. Bladder: Unremarkable. Reproductive organs: Prostatic calcifications are seen which may represent prior hemorrhage or granulomatous disease. Bowel: Prominent wall thickening is seen in the sigmoid colon with numerous diverticula. There is partial visualization of a rim-enhancing fluid collection in the wall of the bowel measuring up to 16 mm. Surrounding fat stranding is seen with nonencapsulated free fluid and prominent regional lymph nodes. The appendix is normal. There is a small hiatal hernia. Lymph nodes Retroperitoneal: Unremarkable. Pelvic: Left external iliac lymph nodes measuring less than 1 cm are seen adjacent to the region of inflammation in the sigmoid. Mesenteric: Subcentimeter lymph nodes are noted. Peritoneum: Fat stranding and nonencapsulated fluid is seen in the region of the sigmoid colon. There is no pneumoperitoneum. Vessels: Unremarkable. Abdominal wall: Unremarkable. Bones: Degenerative changes in the visualized spine. IMPRESSION: Prominent diverticulosis in the sigmoid colon. There is suggestion of a developing abscess in the bowel wall. Peritoneal fluid is seen without evidence of encapsulation. No pneumoperitoneum is seen, there is no definite evidence of perforation although given the complex character of the mural abscess, perforation cannot be entirely excluded. Medications Administered ER Medications Given: Zosyn 4.5g IV Normal saline 1000ml bolus Code Status & VTE Plan Code Status Full VTE Prophylaxis Plan VTE Prophylaxis will be ordered: Yes Supervising Physician Co-Signing Physician Notes I personally saw and examined the patient. I verified all geiger points and agree with resident physician Dr Dean Bland, with the following exceptions and/or additions: 62 year old male presents to the ER with abdominal pain for 1 week. Treated as outpatient with Augmentin for sinusitis +/- abdominal pathology from health insurance video physician. URI symptoms for last 3 weeks improved sinus pain with Augmentin. No current shortness of breath or cough. Ongoing post nasal drip. O/E HS RRR, no murmurs, Chest CTAB, Abdo LLQ pain on palpation with guarding but no rebound tenderness A/P Acute diverticulitis - IV Zosyn, NPO (except meds), IV fluids Intermittent GERD - start pantoprazole 40mg IV daily while in hospital Paroxysmal A. fib - likelihood of needing surgery is low therefore ok to continue Xarelto, continue Multaq for rhythm control. Currently in NSR. Resident Activity Tracking Resident Involvement: Resident Care Provided Care Provided: Adult Hospital Medicine
--- NOTE | 2023-01-22 20:15 | Surgery Consultation ---
Date of Consultation January 22, 2023 Assessment & Plan (1) Diverticulitis of intestine with abscess: The patient has been admitted on the hospitalist service. We recommend proceeding as follows: Provide analgesicsprovide antiemetics Implement n.p.o. status. This has been ordered by the primary service Provide IV fluid for hydration Antibiotics in form of Zosyn have been initiated and he should continue Follow serial labs I explained to the patient that we will be preferable to treat this in a conservative manner as noted above as any emergency surgery would likely necessitate a colostomy. I did discuss with the patient that we will monitor his blood work as well as clinical exams and if patient does not show improvement with the modalities noted above consideration be given to re- scanning the patient's abdomen. If there is progression of the patient's abscess consideration be given to enlisting the help of interventional radiology if felt to be feasible to percutaneous drainage. Additional recommendations be forthcoming based on his clinical course as unfolds Supervising Physician Co-Signing Physician Notes This case was discussed with the surgical PA. I agree with the plan. History of Present Illness Reason for Consultation: Diverticulitis History of Present Illness This is a 62-year-old male who presented to the emergency department at the recommendation of his outpatient physicians. Patient notes that he has not been feeling well for approximately 1 month. The patient says that he has been having on and off abdominal pain without modifying factors or radiation. The pain is located primarily in the suprapubic region. Patient says that he was seen at an urgent care center early on the onset of his illness and he was told that he likely had a gastroenteritis. Patient continued to not feel well so he was started on oral Augmentin 2 days ago but he continues to not feel well and saw an outpatient GI physician. A CT scan of the abdomen pelvis was ordered which is delineated below and he was therefore referred to the emergency department for further evaluation. Patient does note that he has been febrile. He also reports a poor appetite. He denies any nausea or vomiting but has been having some loose bowel movements. He says he has had abdominal surgery in the form of bilateral inguinal herniorrhaphies. He believes that they did utilize mesh. He has also undergone a colonoscopy most recently 7 years ago and to the best of his knowledge no significant pathology was noted on this study. Of note, the patient does take Xarelto for history of atrial fibrillation. Since arrival to [facility] the patient has had labs which in dependent reviewed. CBC revealed white blood cell count was slightly elevated at 13.7. His hemoglobin was normal and his hematocrit was slightly low at 41.8. Platelet count was normal. Chemistry profile showed sodium was 132 with a potassium of 4.4. BUN and creatinine were both normal. There is no elevation of LFTs or lipase. Patient did undergo an outpatient CT scan earlier today. This showed the patient had prominent diverticulosis of the sigmoid colon with suggestion of a developing abscess in the wall of the bowel. No pneumoperitoneum was noted. At the time my interview the patient was resting comfortably in bed and he was in no distress. Allergies Allergy/AdvReac Type Severity Reaction Status Date / Time mold Allergy Intermediate Dyspnea Verified 01/23/23 00:49 tree and shrub pollen Allergy Intermediate Dyspnea Verified 01/23/23 00:49 amoxicillin Allergy Unknown "Doesn't Verified 01/22/23 17:43 work" Home Medications Medication Instructions Recorded Confirmed Type multivitamin (Multiple Vitamins 1 tab PO DAILY 01/12/19 01/22/23 History tablet) rivaroxaban 20 mg tablet 20 mg PO QPM 01/12/19 01/22/23 History Lactobacillus acidophilus and 1 cap PO QPM 12/05/21 01/22/23 History rhamnosus 15 billion cell capsule (Probiotic) Red Wine Supplement 1 cap PO QAM 12/05/21 01/22/23 History atorvastatin 20 mg tablet 20 mg PO HS 12/05/21 01/22/23 History cholecalciferol (vitamin D3) 50 50 mcg PO QAM 12/05/21 01/22/23 History mcg (2,000 unit) capsule (Vitamin D3) coQ10 (ubiquinol) 200 mg capsule 200 mg PO QPM 12/05/21 01/22/23 History cyclobenzaprine 5 mg tablet 5 mg PO DAILY PRN Pain 12/05/21 01/22/23 History lisinopril 40 mg tablet 40 mg PO QPM 12/05/21 01/22/23 History melatonin 10 mg tablet 10 - 20 mg PO HS PRN Sleep 12/05/21 01/22/23 History montelukast 10 mg tablet 10 mg PO DAILY PRN ALLERGY RELIEF 12/05/21 01/22/23 History (Singulair) Wheeled Walker #1 ea 12/11/21 01/09/22 Rx acetaminophen 500 mg capsule 1,000 mg PO TID Pain 30 days #180 12/19/21 01/22/23 Rx caps amlodipine 2.5 mg tablet 2.5 mg PO QAM 01/22/23 01/22/23 History amoxicillin 875 mg-potassium 1 tab PO BID 01/22/23 01/22/23 History clavulanate 125 mg tablet calcipotriene 0.005 % topical 1 applic topical DAILY 01/22/23 01/22/23 History ointment clobetasol 0.05 % topical ointment 1 applic topical DAILY 01/22/23 01/22/23 History dronedarone 400 mg tablet (Multaq) 400 mg PO BID 01/22/23 01/22/23 History Patient History Medical History Atrial fibrillation Follow with Dr. Guthrie ([facility] cardio) last visit 02/26/22 Chronic sinus bradycardia on beta jillian Degenerative spondylolisthesis Hyperlipidemia Hypertension Obesity Psoriasis Psoriatic arthritis Right knee DJD Sleep apnea CPAP (compliant) Surgical History H/O cardiac radiofrequency ablation x2 (?2019) H/O sinus surgery x2 History of anesthesia reaction Awareness with hernia surgery History of cardioversion 2016 History of colonoscopy History of ear surgery R/L ear drum surgery History of tooth extraction Hx of inguinal hernia surgery R/L Status post total left knee replacement 12/23/21: SAB at L3-L4 + PNB. Family History Sister Family history of diabetes mellitus Mother Family history of diabetes mellitus Other No family history of adverse response to anesthesia Social History Smoking Status: Never smoker Second Hand Exposure: Yes; Do You Dip or Chew Tobacco: No; Tobacco Cessation Education Requested by Patient: No Hx Alcohol Use: Yes Alcohol type: beer Hx Substance Use: No Preferred Language: Danish Communication Ability: Effective [place] Required: No Beliefs That Will Affect Care: None Current Living Situation: Spouse and Family Other Information That Helps Us Care for You: No Feels Safe at Home: Yes Safety Concerns: Feels Safe At This Time Assistive Devices: CPAP, Glasses, Hospital Bed and Walker Review of Systems Constitutional: + fever Eyes: + corrective lenses Ear, Nose, Mouth, Throat: no ear pain Respiratory: no cough and no dyspnea Cardiovascular: no chest pain Gastrointestinal: as per Subjective / HPI Genitourinary: no dysuria Musculoskeletal: no back pain Integumentary: no rash Neurologic: no localized weakness Physical Exam Constitutional: WD/WN, vitals as above Eyes: Wears glasses ENMT: Ears: no hearing impairment Neck: trachea midline Respiratory: normal respiratory effort; no respiratory distress and no labored breathing Cardiovascular: Rate/Rhythm: regular rate and regular rhythm Gastrointestinal (Abdomen): Abdomen is rotund and soft. It is nonrigid. At the time of my exam the patient did not have any pain with palpation and he did not have any rebound tenderness or guarding. Musculoskeletal: No calf tenderness Skin: no rashes Neurologic: moves all extremities Psychiatric: A+Ox3, euthymic affect Results & Data Vital Signs (Past 12 Hours) Vital Signs Temp Pulse Resp BP Pulse Ox O2 Del Method 01/22/23 16:05 36.7 C 84 18 147/81 H 98 Room Air PG Care Time/CCT Total # of Minutes Spent Total Time Spent with Patient: Total time spent is greater than 50% in coordination of care (as documented) at patient's floor/unit and/or counseling patient: Coding Level of Care Code 93900 IN/OBS CONSULT LVL 5,80M Diagnoses Diverticulitis of intestine with abscess K57.80
[2023-01-22 21:44] LABS: Appearance Urine Clear (Clear); Bacteria Urine Automated Negative (Negative); Bilirubin Urine Negative (Negative); Blood Urine 1+ (Negative); Cast Urine Automated 0 /lpf (0-5); Color Urine Dark Yellow; Epithelial Cell Urine Auto 0-5 /lpf (0-5); Glucose Urine UA Negative (Negative); Ketones Urine Negative (Negative); Leukocyte Esterase Urine Negative (Negative); Nitrite Urine Negative (Negative); Protein Urine Negative (Negative); Specific Gravity Urine > 1.045 (1.000-1.030); Urobilinogen Urine Negative (Negative); pH Urine 6.5 (4.5-7.5)
[2023-01-23] MEDS: LACTATED RINGER'S 1,000 ML IV SCH ×3 (00:38→18:46)
[2023-01-23] MEDS ORDERED: RIVAROXABAN 20 MG TAB PO SCH (00:38)
[2023-01-23] MEDS ORDERED: MoRPHine SULFATE 2 MG/ML CARP IV PRN (00:38)
[2023-01-23] MEDS ORDERED: ONDANSETRON INJ 2 MG/ML 2 ML VIAL IV PRN (00:38)
[2023-01-23] MEDS ORDERED: MONTELUKAST SODIUM 10 MG TABLET PO PRN (00:38)
[2023-01-23] MEDS ORDERED: CYCLOBENZAPRINE HCL 5 MG TAB PO PRN (00:38)
[2023-01-23] MEDS ORDERED: ACETAMINOPHEN 1,000 MG/100 ML VIAL IV PRN (00:38)
[2023-01-23] MEDS: PIPERACILLIN/TAZOBACTAM 4.5 GM in DEXTROSE 5% MINI-B 100 ML IV SCH ×3 (01:00→16:19)
[2023-01-23] MEDS: lisinopril 40 MG TAB PO SCH ×3 (01:35→16:17)
[2023-01-23] MEDS: DRONEDARONE HCL 400 MG TAB PO SCH ×2 (01:35→16:18)
[2023-01-23] MEDS: ATORVASTATIN 20 MG TAB PO SCH ×2 (01:35→20:52)
--- NOTE | 2023-01-23 06:18 | Surgery Progress Note ---
Date of Service January 23, 2023 Assessment & Plan (1) Diverticulitis of intestine with abscess: Plan: The patient has been admitted on the hospitalist service. We recommend proceeding as follows: Continue analgesics Continue antiemetics Continue n.p.o. status. As patient continues to clinically improve consideration be given to advancing patient's diet beginning with clear liquids IV fluid for hydration until oral intake can be advanced and is reliable Continue antibiotics in form of Zosyn Check a.m. labs when available Admission and Anticipated Discharge Date Admission Date: January 22, 2023 Supervising Physician Co-Signing Physician Notes Leukocytosis increased. Patient notes changes in pain frequency with some improvement but still concerned. Continue NPO status for today. Will reassess in the am. F/U am labs Hold Xarelto for now until we see how this evolves and do not need surgical or IR intervention. Subjective Patient is currently resting comfortably in bed. Since admission to the hospital he notes his abdominal pain has improved. He denies any nausea or vomiting. He also reports that he has had a bowel movement since admission. He denies any fevers, shakes, or chills. Physical Exam Gastrointestinal (Abdomen): Abdomen is rotund and soft. There is no pain with palpation at the time of my exam and there is no rebound tenderness or guarding. Results & Data Vital Signs (Past 12 Hours) Vital Signs Temp Pulse Pulse Resp BP Pulse Ox O2 Del Method 01/23/23 00:42 Room Air, CPAP 01/23/23 00:42 Room Air, CPAP 01/23/23 00:42 37.1 C 76 18 114/90 95 Room Air 01/23/23 00:42 37.1 C 76 18 114/90 95 Room Air 01/23/23 00:00 76 20 128/77 96 Room Air 01/22/23 22:29 80 16 147/65 H 97 Room Air 01/22/23 21:30 81 16 159/81 H 95 Room Air 01/22/23 20:00 87 16 134/82 97 Room Air PG Care Time/CCT Total # of Minutes Spent Total Time Spent with Patient: Total time spent is greater than 50% in coordination of care (as documented) at patient's floor/unit and/or counseling patient: Coding Level of Care Code 63589 SUB INP/OBS CARE Diagnoses Diverticulitis of intestine with abscess K57.80
[2023-01-23 07:18] LABS: Hematocrit (blood only) 39.9 % (42.0-52.0); Hemoglobin 14.1 g/dl (14.0-18.0); Mean Corpuscular Hemoglobin 31.1 pg (25.0-34.0); Mean Corpuscular Hgb Conc 35.3 g/dL (32.0-36.0); Mean Corpuscular Volume 88.1 fL (80.0-100.0); Mean Platelet Volume 9.7 fL (9.4-12.4); Platelet Count 247 K/uL (130-400); RDW Coefficient of Variation 12.7 % (11.5-14.5); RDW Standard Deviation 41.1 fL (36.4-46.3); Red Blood Count 4.53 M/uL (4.70-6.10); White Blood Count 14.09 K/ul (4.8-10.8)
--- NOTE | 2023-01-23 07:37 | Billing Data ---
Date of Service January 22, 2023 Coding Level of Care Code 28420 INT INP/OBS CARE
[2023-01-23] MEDS ORDERED: amLODIPine BESYLATE 5 MG TAB PO SCH (09:00)
[2023-01-23] MEDS: CLOBETASOL PROPIONATE 0.05% OINT 15 GM TUBE EXT SCH (09:29)
[2023-01-23] MEDS ORDERED: Nursing to Pharmacy Communication SCH (09:30)
[2023-01-23] MEDS: PANTOprazole 40 MG in SYRINGE 0 ML IV SCH (11:05)
--- NOTE | 2023-01-23 12:15 | Electrocardiogram Report ---
Test Reason : Blood Pressure : / mmHG Vent. Rate : 077 BPM Atrial Rate : 077 BPM P-R Int : 206 ms QRS Dur : 144 ms QT Int : 404 ms P-R-T Axes : 057 -36 -06 degrees QTc Int : 457 ms Normal sinus rhythm Left axis deviation Right bundle branch block Abnormal ECG When compared with ECG of 27-FEB-2022 06:48, No significant change was found Confirmed by Bony Ruelas ([id number]) on 01/23/2023 12:15:23 PM Referred By: Brandie Welsh Confirmed By:Bony Ruelas
[2023-01-23] MEDS: amLODIPine BESYLATE 5 MG TAB PO SCH (16:17)
--- NOTE | 2023-01-23 23:34 | Hospitalist Progress Note ---
Date of Service January 23, 2023 Assessment & Plan (1) Diverticulitis of intestine with abscess: (2) HTN (hypertension): (3) Apnea, sleep: (4) Hyperlipidemia: (5) Psoriasis: (6) Atrial fibrillation: (7) GERD (gastroesophageal reflux disease): Plan Pt is a 62 year old male with PMHx significant for Afib, HTN, HLD, psoriasis, and sleep apnea presenting with abdominal pain. Patient afebrile at time of presentation, though WBC count was elevated at 13.73. CT abdomen/pelvis sugge stive of diverticulitis with note of abscess developing in bowel wall. #Diverticulitis with abscess: - Admit to med/surg - NPO, sips of water for PO meds okay - Continue IV maintenance fluids - Start IV zosyn 4.5 g Q8H - IV acetaminophen, morphine prn for pain control - Consult general surgery - Blood cx pending Will remain NPO to help with his healing process #Afib: - Continue Multaq and rivaroxaban - EKG ordered #HTN: - Continue lisinopril and amlodipine #HLD: - Continue atorvastatin #Psoriasis: - Continue calcipotriene and clobetasol #Sleep apnea: - continue nighttime CPAP use Dispo: Med/Surg Diet: NPO VTE ppx: Rivaroxaban Code: Full Code Admission and Anticipated Discharge Date Admission Date: January 22, 2023 Subjective Patient reports no new symptoms. His pain is better controlled. Review of Systems Review of Systems: All systems reviewed & are unremarkable except as noted in HPI & below Physical Exam Physical Exam: Constitutional: WD/WN, vitals as above no acute distress Respiratory: normal respiratory effort, lungs clear to auscultation Cardiovascular: RRR, no murmur, no edema Gastrointestinal (Abdomen): Non-distended, bowel sounds intact, decreased TTP. Skin: no rashes, warm and dry Psychiatric: A+Ox3, euthymic affect Results & Data Results & Data Vital Signs (Past 12 Hours) Vital Signs Temp Pulse Resp BP Pulse Ox O2 Del Method 01/23/23 15:09 37.0 C 71 18 120/78 94 Room Air PG Care Time/CCT Total # of Minutes Spent Total Time Spent with Patient: Total time spent is greater than 50% in coordination of care (as documented) at patient's floor/unit and/or counseling patient: Coding Level of Care Code 99069 SUB INP/OBS CARE MIN Diagnoses Diverticulitis of intestine with abscess K57.80 HTN (hypertension) I10 Apnea, sleep G47.30 Hyperlipidemia E78.5 Psoriasis L40.9 Atrial fibrillation I48.91 GERD (gastroesophageal reflux disease) K21.9
[2023-01-24] MEDS: PIPERACILLIN/TAZOBACTAM 4.5 GM in DEXTROSE 5% MINI-B 100 ML IV SCH ×3 (00:15→16:34)
[2023-01-24] MEDS: DRONEDARONE HCL 400 MG TAB PO SCH ×2 (04:11→16:32)
[2023-01-24] MEDS ORDERED: Nursing to Pharmacy Communication SCH ×2 (04:15→16:00)
--- NOTE | 2023-01-24 05:43 | Surgery Progress Note ---
Date of Service January 24, 2023 Assessment & Plan (1) Diverticulitis of intestine with abscess: Plan: The patient has been admitted on the hospitalist service. We recommend proceeding as follows: Continue analgesics Continue antiemetics Continue n.p.o. status. Although the patient has noted some clinical improvement he wishes to go slow with diet advancement to ensure adequate healing/resolution of his diverticulitis. Continue IV fluid for hydration until oral intake can be advanced and is reliable Continue antibiotics in form of Zosyn Patient was noted to have a leukocytosis with a white blood cell count of 14 on 01/23/2023. Check a.m. labs when available to further evaluate leukocytosis Encourage ambulation Admission and Anticipated Discharge Date Admission Date: January 22, 2023 Supervising Physician Co-Signing Physician Notes I have seen and examined this patient. He says he feels bloated with the NGT clamped but his abdomen is not tensely distended. He is very soft. He has no nausea and NGT outputs after 4 hour clamping checks is very low. Encourage aggressive ambulation today. Hoping today patient will begin to pass significant flatus. PPN is being started today. Continuing NPO. Subjective Patient is resting comfortably in bed. He notes any abdominal discomfort he was experiencing has markedly improved since admission. He notes his bowels have moved since admission. He denies any fevers, shakes, or chills. He denies any nausea or vomiting. Physical Exam Gastrointestinal (Abdomen): Abdomen is rotund but soft. There is no rebound tenderness or guarding. There is no pain with palpation. PG Care Time/CCT Total # of Minutes Spent Total Time Spent with Patient: Total time spent is greater than 50% in coordination of care (as documented) at patient's floor/unit and/or counseling patient: Coding Level of Care Code 06399 SUB INP/OBS CARE 05/13MIN Diagnoses Diverticulitis of intestine with abscess K57.80
[2023-01-24 07:40] LABS: Basophils # (auto) 0.09 K/uL (0.00-0.20); Basophils % (auto) 0.8 %; Eosinophils # (auto) 0.13 K/uL (0.00-0.50); Eosinophils % (auto) 1.1 %; Hematocrit (blood only) 38.9 % (42.0-52.0); Hemoglobin 13.6 g/dl (14.0-18.0); Immature Granulocytes # (auto) 0.11 K/uL (0.01-0.20); Lymphocytes # (auto) 1.44 K/uL (1.20-3.40); Lymphocytes % (auto) 12.5 %; Mean Corpuscular Hemoglobin 30.8 pg (25.0-34.0); Mean Corpuscular Volume 88.2 fL (80.0-100.0); Mean Platelet Volume 9.6 fL (9.4-12.4); Monocytes % (auto) 13.8 %; Neutrophils # (auto) 8.19 K/uL (1.40-6.50); Neutrophils % (auto) 70.8 %; Platelet Count 227 K/uL (130-400); RDW Coefficient of Variation 12.3 % (11.5-14.5); RDW Standard Deviation 39.9 fL (36.4-46.3); Red Blood Count 4.41 M/uL (4.70-6.10); White Blood Count 11.56 K/ul (4.8-10.8)
[2023-01-24] MEDS: LACTATED RINGER'S 1,000 ML IV SCH ×2 (07:59→21:08)
[2023-01-24] MEDS: CLOBETASOL PROPIONATE 0.05% OINT 15 GM TUBE EXT SCH (07:59)
[2023-01-24] MEDS: PANTOprazole 40 MG in SYRINGE 0 ML IV SCH (10:37)
[2023-01-24] MEDS: amLODIPine BESYLATE 5 MG TAB PO SCH (16:31)
[2023-01-24] MEDS: lisinopril 40 MG TAB PO SCH (16:32)
--- NOTE | 2023-01-24 17:51 | Hospitalist Progress Note ---
Date of Service January 24, 2023 Assessment & Plan (1) Diverticulitis of intestine with abscess: (2) HTN (hypertension): (3) Apnea, sleep: (4) Hyperlipidemia: (5) Psoriasis: (6) Atrial fibrillation: (7) GERD (gastroesophageal reflux disease): Plan Pt is a 62 year old male with PMHx significant for Afib, HTN, HLD, psoriasis, and sleep apnea presenting with abdominal pain. Patient afebrile at time of presentation, though WBC count was elevated at 13.73. CT abdomen/pelvis sugge stive of diverticulitis with note of abscess developing in bowel wall. #Diverticulitis with abscess: - Admit to med/surg - NPO, sips of water for PO meds okay - Continue IV maintenance fluids - Start IV zosyn 4.5 g Q8H - IV acetaminophen, morphine prn for pain control - Consult general surgery - Blood cx pending Will remain NPO to help with his healing process. Patient may start clear liquid diet on 01/25 #Afib: - Continue Multaq and rivaroxaban - EKG ordered #HTN: - Continue lisinopril and amlodipine #HLD: - Continue atorvastatin #Psoriasis: - Continue calcipotriene and clobetasol #Sleep apnea: - continue nighttime CPAP use Dispo: Med/Surg Diet: NPO VTE ppx: Rivaroxaban Code: Full Code Admission and Anticipated Discharge Date Admission Date: January 22, 2023 Subjective Patient reports no new symptoms. Review of Systems Review of Systems: All systems reviewed & are unremarkable except as noted in HPI & below Physical Exam Physical Exam: Constitutional: WD/WN, vitals as above no acute distress Respiratory: normal respiratory effort, lungs clear to auscultation Cardiovascular: RRR, no murmur, no edema Gastrointestinal (Abdomen): Non-distended, bowel sounds intact, mild TTP in lower abdomen Skin: no rashes, warm and dry Psychiatric: A+Ox3, euthymic affect Results & Data Results & Data Vital Signs (Past 12 Hours) Vital Signs Temp Pulse Resp BP Pulse Ox O2 Del Method 01/24/23 14:54 37.2 C 73 18 135/75 94 Room Air 01/24/23 07:16 36.9 C 70 18 149/78 H 94 Room Air PG Care Time/CCT Total # of Minutes Spent Total Time Spent with Patient: Total time spent is greater than 50% in coordination of care (as documented) at patient's floor/unit and/or counseling patient: Coding Level of Care Code 80997 SUB INP/OBS CARE Diagnoses Diverticulitis of intestine with abscess K57.80 HTN (hypertension) I10 Apnea, sleep G47.30 Hyperlipidemia E78.5 Psoriasis L40.9 Atrial fibrillation I48.91 GERD (gastroesophageal reflux disease) K21.9
[2023-01-24] MEDS: ATORVASTATIN 20 MG TAB PO SCH (21:08)
[2023-01-25] MEDS: PIPERACILLIN/TAZOBACTAM 4.5 GM in DEXTROSE 5% MINI-B 100 ML IV SCH ×3 (00:59→17:32)
[2023-01-25] MEDS: DRONEDARONE HCL 400 MG TAB PO SCH ×2 (04:47→16:24)
[2023-01-25] MEDS: CLOBETASOL PROPIONATE 0.05% OINT 15 GM TUBE EXT SCH (08:31)
[2023-01-25] MEDS: LACTATED RINGER'S 1,000 ML IV SCH (08:32)
[2023-01-25 09:07] LABS: Basophils # (auto) 0.06 K/uL (0.00-0.20); Basophils % (auto) 0.6 %; Eosinophils # (auto) 0.13 K/uL (0.00-0.50); Eosinophils % (auto) 1.3 %; Hematocrit (blood only) 40.2 % (42.0-52.0); Hemoglobin 13.8 g/dl (14.0-18.0); Immature Granulocytes # (auto) 0.09 K/uL (0.01-0.20); Immature Granulocytes % (auto) 0.9 %; Lymphocytes # (auto) 1.46 K/uL (1.20-3.40); Lymphocytes % (auto) 14.3 %; Mean Corpuscular Hemoglobin 30.7 pg (25.0-34.0); Mean Corpuscular Hgb Conc 34.3 g/dL (32.0-36.0); Mean Corpuscular Volume 89.5 fL (80.0-100.0); Mean Platelet Volume 9.4 fL (9.4-12.4); Monocytes # (auto) 1.24 K/uL (0.11-0.59); Monocytes % (auto) 12.1 %; Neutrophils # (auto) 7.23 K/uL (1.40-6.50); Neutrophils % (auto) 70.8 %; Platelet Count 252 K/uL (130-400); RDW Coefficient of Variation 12.1 % (11.5-14.5); Red Blood Count 4.49 M/uL (4.70-6.10); White Blood Count 10.21 K/ul (4.8-10.8)
[2023-01-25 09:20] LABS: Albumin Globulin Ratio 1.2 (0.9-2); Albumin Level 3.7 gm/dl (3.4-5.0); BUN Creatinine Ratio 13.7 (10-20); Bilirubin,Total 0.7 mg/dl (0.2-1.0); Calcium 8.7 mg/dl (8.6-10.3); Creatinine Clr Calc Pharmacy 119.1 ml/min; Est GFR (African American) 99.7 ml/min; Est GFR (Non-African American) 86.1 ml/min; Globulin 3.2 gm/dl (2.5-4.0); Potassium 4.2 mmol/L (3.5-5.1); Total Protein 6.9 gm/dl (6.0-8.3)
--- NOTE | 2023-01-25 09:35 | Surgery Progress Note ---
I have seen and examined this patient with the surgical PA this am. I agree with the assessment and plan. Date of Service January 25, 2023 Assessment & Plan (1) Diverticulitis of intestine with abscess: Plan: Patient here with diverticulitis and concern for intramural abscess WBC 10. Vitals are stable and patient afebrile He is feeling daily improvement in his symptoms. No n/v. Pain is mild and controlled. + flatus and loose stools Will advance to clear liquids today and see how he fairs. If does well will consider fulls tomorrow and possible dispo Encourage OOB and pulmonary toilet. Continue IV abx while in house, may transition to a course of PO upon discharge Admission and Anticipated Discharge Date Admission Date: January 22, 2023 Subjective Patient is feeling pretty well. Reports some very mild uncomfortable-ness on a scale of 1/10. Denies any nausea/vomiting. He is passing flatus and loose/watery stools. Had an 10-30second episode of pain overnight that self resolved. Physical Exam Physical Exam: awake/alert, no distress Respiratory: normal respiratory effort Gastrointestinal (Abdomen): Inspection/Auscultation: abdomen not distended Percussion/Palpation: + abdomen tender (mild pressure supra-pubically and off to the LLQ) and abdomen soft Results & Data Vital Signs (Past 12 Hours) Vital Signs Temp Pulse Resp BP Pulse Ox O2 Del Method 01/25/23 07:26 36.7 C 65 16 144/85 H 95 Room Air PG Care Time/CCT Total # of Minutes Spent Total Time Spent with Patient: Total time spent is greater than 50% in coordination of care (as documented) at patient's floor/unit and/or counseling patient: Coding Level of Care Code 47329 SUB INP/OBS CARE 05/13MIN Diagnoses Diverticulitis of intestine with abscess K57.80
[2023-01-25] MEDS: D5W AND 1/2NSS 1,000 ML IV SCH ×2 (10:05→22:05)
[2023-01-25] MEDS: PANTOprazole 40 MG in SYRINGE 0 ML IV SCH (10:06)
[2023-01-25] MEDS ORDERED: lisinopril 40 MG TAB PO SCH (16:00)
[2023-01-25] MEDS: lisinopril 40 MG TAB PO SCH (16:23)
[2023-01-25] MEDS: amLODIPine BESYLATE 5 MG TAB PO SCH (16:24)
[2023-01-25] MEDS: SUCRALFATE 1 GM/10 ML UDC PO SCH ×2 (18:39→21:16)
[2023-01-25] MEDS: ATORVASTATIN 20 MG TAB PO SCH (21:16)
[2023-01-26] MEDS: PIPERACILLIN/TAZOBACTAM 4.5 GM in DEXTROSE 5% MINI-B 100 ML IV SCH ×2 (01:55→09:58)
[2023-01-26] MEDS: DRONEDARONE HCL 400 MG TAB PO SCH (03:43)
--- NOTE | 2023-01-26 07:52 | Hospitalist Progress Note ---
Date of Service January 25, 2023 Assessment & Plan (1) Diverticulitis of intestine with abscess: (2) HTN (hypertension): (3) Apnea, sleep: (4) Hyperlipidemia: (5) Psoriasis: (6) Atrial fibrillation: (7) GERD (gastroesophageal reflux disease): Plan Pt is a 62 year old male with PMHx significant for Afib, HTN, HLD, psoriasis, and sleep apnea presenting with abdominal pain. Patient afebrile at time of presentation, though WBC count was elevated at 13.73. CT abdomen/pelvis sugg estive of diverticulitis with note of abscess developing in bowel wall. #Diverticulitis with abscess: - Admit to med/surg - NPO, sips of water for PO meds okay - Continue IV maintenance fluids - Start IV zosyn 4.5 g Q8H - IV acetaminophen, morphine prn for pain control - Consult general surgery was NPO until 01/25 start clear liquid diet on 01/25 WIll advance on 01/26, if symptoms improved will lindaley discharged. Added sucralfate for GERD symptoms. will likely need Scope as an outpatient with [facility] #Afib: - Continue Multaq and rivaroxaban - EKG ordered #HTN: - Continue lisinopril and amlodipine #HLD: - Continue atorvastatin #Psoriasis: - Continue calcipotriene and clobetasol #Sleep apnea: - continue nighttime CPAP use Dispo: Med/Surg Diet: NPO VTE ppx: Rivaroxaban Code: Full Code Admission and Anticipated Discharge Date Admission Date: January 22, 2023 Subjective Patient reports tolerated a clear liquid diet. Patient however is complaining of intermitted chest pain after eating. He reports he was told he had GERD in the past but stopped taking PPI as heis symptoms improved. Review of Systems Review of Systems: All systems reviewed & are unremarkable except as noted in HPI & below Physical Exam Physical Exam: Constitutional: WD/WN, vitals as above no acute distress Respiratory: normal respiratory effort, lungs clear to auscultation Cardiovascular: RRR, no murmur, no edema Gastrointestinal (Abdomen): Non-distended, bowel sounds intact, mild TTP in lower abdomen Skin: no rashes, warm and dry Psychiatric: A+Ox3, euthymic affect Results & Data Results & Data Vital Signs (Past 12 Hours) Vital Signs Temp Pulse Resp BP Pulse Ox O2 Del Method 10/10/23 07:24 36.3 C L 60 16 118/72 97 Room Air, CPAP 01/25/23 21:16 Room Air, CPAP 01/25/23 20:30 36.5 C 78 18 124/77 96 Room Air PG Care Time/CCT Total # of Minutes Spent Total Time Spent with Patient: Total time spent is greater than 50% in coordination of care (as documented) at patient's floor/unit and/or counseling patient: Coding Level of Care Code 48088 SUB INP/OBS CARE 2/35MIN Diagnoses Diverticulitis of intestine with abscess K57.80 HTN (hypertension) I10 Apnea, sleep G47.30 Hyperlipidemia E78.5 Psoriasis L40.9 Atrial fibrillation I48.91 GERD (gastroesophageal reflux disease) K21.9
--- NOTE | 2023-01-26 08:28 | Surgery Progress Note ---
Date of Service January 26, 2023 Assessment & Plan (1) Diverticulitis of intestine with abscess: Plan Clinically patient symptoms are completely resolved. Leukocytosis was resolved as of yesterday. Patient has remained afebrile and has tolerated clear liquids. A full liquid diet has been ordered for advancement. Recommend discharge after lunch with an additional 10-day course of oral antibiotics at home. Remain on a full liquid diet for an additional day at home (tomorrow). May advance to a low fiber diet on day 2 of being home. Follow-up with me in the office in 6 weeks to discuss colonoscopy if he does not already have an established district court administrator that performs his colonoscopies. If the patient does already see a district court administrator for colonoscopies he may follow-up with his district court administrator to have a colonoscopy performed within the next 2 months. Admission and Anticipated Discharge Date Admission Date: January 22, 2023 Subjective Patient seen and examined this AM. He is doing quite well with no complaints of abdominal pains since starting clear liquids continues to pass gas, had bowel movements and continues to be without nausea, vomiting fevers or chills. Physical Exam Constitutional: healthy appearing; not ill appearing, not in distress and not diaphoretic Respiratory: normal respiratory effort; no respiratory distress, no labored breathing and does not use accessory muscles Gastrointestinal (Abdomen): Inspection/Auscultation: abdomen normal to inspection; abdomen not distended Percussion/Palpation: abdomen soft; abdomen nontender and no guarding Neurologic: moves all extremities and awake; no focal motor deficits and not confused Results & Data Vital Signs (Past 12 Hours) Vital Signs Temp Pulse Resp BP Pulse Ox O2 Del Method 01/26/23 07:24 36.3 C L 60 16 118/72 97 Room Air, CPAP 01/25/23 21:16 Room Air, CPAP 01/25/23 20:30 36.5 C 78 18 124/77 96 Room Air PG Care Time/CCT Total # of Minutes Spent Total Time Spent with Patient: Total time spent is greater than 50% in coordination of care (as documented) at patient's floor/unit and/or counseling patient: Coding Level of Care Code 34548 SUB INP/OBS CARE Diagnoses Diverticulitis of intestine with abscess K57.80
[2023-01-26] MEDS: SUCRALFATE 1 GM/10 ML UDC PO SCH ×2 (08:45→12:30)
[2023-01-26] MEDS: CLOBETASOL PROPIONATE 0.05% OINT 15 GM TUBE EXT SCH (08:45)
[2023-01-26] MEDS: D5W AND 1/2NSS 1,000 ML IV SCH (10:07)
[2023-01-26] MEDS: PANTOprazole 40 MG in SYRINGE 0 ML IV SCH (10:07)
[2023-01-26 11:47] LABS: BUN Creatinine Ratio 8.5 (10-20); Calcium 8.7 mg/dl (8.6-10.3); Creatinine Clr Calc Pharmacy 120.3 ml/min; Est GFR (Non-African American) 87.2 ml/min; Magnesium 2.1 mg/dl (1.7-2.4); Potassium 4.2 mmol/L (3.5-5.1)
--- NOTE | 2023-01-26 12:58 | Discharge Summary ---
Date of Service date of admission - January 22, 2023 date of discharge - January 26, 2023 Admission HPI Per Admitting Provider Pt is a 62 year old male with PMHx significant for Afib, HTN, HLD, psoriasis, and sleep apnea presenting with abdominal pain that began about 1 week ago. Patient describes the pain as a sharp and intermittent in the suprapubic region. Patient notes that he had been having fevers as recently as last night, none today. Has also had very poor appetite for the past week, denies associated nausea and vomiting but states that he has been having diarrhea, most recently this afternoon. Also notes associated heartburn and increased belching. Denies previous history of diverticulitis. Of note, patient states that he has had a series of upper respiratory infections over the past month, was taking amoxicillin at the time of admission. ED Course: Lab work up significant for elevated WBC count of 13.[address] abdomen/pelvis noted prominent sigmoid diverticulosis with suggestion of developing abscess in the bowel wall. No pneumoperitoneum noted, through perforation cannot be entirely excluded. Pt given bolus of IV fluids and started on Zosyn. Principal Diagnosis Acute sigmoid diverticulitis with small abscess Discharge Exam gen - NAD, obese, pleasant mouth - MMM neck - no JVD heart - RRR, s1 s2, no murmur lungs - CTA b/l, no rales abd - soft NT ND BS+; no HSM ext - no edema, pulses 2+ b/l psych - a/o x 3 Discharge Data Allergies Allergy/AdvReac Type Severity Reaction Status Date / Time mold Allergy Intermediate Dyspnea Verified 01/23/23 00:49 tree and shrub pollen Allergy Intermediate Dyspnea Verified 01/23/23 00:49 amoxicillin Allergy Unknown "Doesn't Verified 01/22/23 17:43 work" Consultations General Surgery Ordered Studies CT abd pelvis oral and IV con - 01/22/23 CLINICAL HISTORY: K52.9 GASTROENTERITIS/COLITIS TECHNIQUE: Helical axial images of the abdomen and pelvis were obtained and displayed. Automated dose lowering techniques and/or adjustment according to patient size were utilized for this exam. This exam was performed with intravenous contrast. CT DOSE: 1530.33 mGy.cm COMPARISON: Comparison is made to CT abdomen pelvis 12/07/2017 FINDINGS: Lower chest: Bibasilar atelectasis versus scarring is seen. Liver: Unremarkable. No focal lesions are seen. Gallbladder and biliary tree: No calcified gallstones. Normal caliber wall. No intra- or extrahepatic biliary ductal dilation. Pancreas: Unremarkable, no focal lesions. Spleen: Unremarkable. Adrenals: Unremarkable. Kidneys and ureters: Subcentimeter hypodensities are too small to characterize. Bladder: Unremarkable. Reproductive organs: Prostatic calcifications are seen which may represent prior hemorrhage or granulomatous disease. Bowel: Prominent wall thickening is seen in the sigmoid colon with numerous diverticula. There is partial visualization of a rim-enhancing fluid collection in the wall of the bowel measuring up to 16 mm. Surrounding fat stranding is seen with nonencapsulated free fluid and prominent regional lymph nodes. The appendix is normal. There is a small hiatal hernia. Lymph nodes Retroperitoneal: Unremarkable. Pelvic: Left external iliac lymph nodes measuring less than 1 cm are seen adjacent to the region of inflammation in the sigmoid. Mesenteric: Subcentimeter lymph nodes are noted. Peritoneum: Fat stranding and nonencapsulated fluid is seen in the region of the sigmoid colon. There is no pneumoperitoneum. Vessels: Unremarkable. Abdominal wall: Unremarkable. Bones: Degenerative changes in the visualized spine. IMPRESSION: Prominent diverticulosis in the sigmoid colon. There is suggestion of a developing abscess in the bowel wall. Peritoneal fluid is seen without evidence of encapsulation. No pneumoperitoneum is seen, there is no definite evidence of perforation although given the complex character of the mural abscess, perforation cannot be entirely excluded. ACT 112: Negative or not required by law. Electronically signed by: Dustin Anderson M.D. 01/22/2023 3:16 PM Dictated:01/22/23 1509 Transcribed: 01/22/23 1509 Hospital Course (1) Diverticulitis of intestine with abscess: Acute sigmoid diverticulitis with abscess. CT a/p showed that the abscess was 16mm in size. This is below the cut-off for needing IR drainage. He was treated in customary fashion with IV fluids, IV antibiotics, and bowel rest. Ultimately resumed on clear liquids - tolerated such - then advanced to full liquid diet. General surgery saw the patient in consult while here. Provided geiger recommendations for his care. With the above he improved and his abdominal pain resolved. Leukocytosis resolved with the above as well. At discharge we advised - * 24 hours more of full liquid diet * then low fiber diet x ~10 days * no fiber supplements for at least 2-3 weeks * cefdinir 300mg BID x 10 days * flagyl 500mg TID x 10 days * f/u with [facility] Louis Boyle to discuss outpatient colonoscopy in 6-8 weeks (he had his previous colonoscopy by [facility]) * f/u with PCP within 7 days for recheck of abdomen (2) Atrial fibrillation: Was in NSR clinically throughout his stay. Continue Multaq to maintain NSR. Continue Xarelto 20mg daily. (3) GERD (gastroesophageal reflux disease): Had GERD symptoms while here, improved with carafate. Recommendations - * protonix 40mg daily x 2 weeks * carafate 1gm prn * f/u with [facility] - need for EGD?? defer that decision to [facility] (4) Hyperlipidemia: Cont lipitor 20mg daily (5) HTN (hypertension): Controlled while here Continue prior BP meds (6) Morbid obesity with BMI of 40.0-44.9, adult: BMI 40 Total Time Total Time Spent Total Time Spent (In Minutes): 35 Discharge Plan Discharge Items Patient Disposition: Home - Self-Care Reason For Visit: DIVERTICULITIS Discharge Diagnosis: 1. acute sigmoid diverticulitis with abscess - improving 2. gastroesophageal reflux disease 3. atrial fibrillation Activity: As commented below Activity Comment: light activities for about 1 week then normal activity thereafter Non-emergency contact: Primary Care Provider and Director Service Call non-emergency contact if: you have any medication questions, your symptoms worsen and you have a fever Follow-up/Referrals: Mer Bledsoe CRNP [Nurse Practitioner] - 02/03/23 1:00 pm Brandie Welsh [Primary Care Provider] - 02/01/23 3:25 pm (Appointment will be with ) Alan Cisneros DO [Physician] - (Follow up as needed ) Diet: Full liquid Addtl Attending Provider Instructions: Mr Alexis, You were hospitalized for diverticulitis of the sigmoid colon. The sigmoid colon is the last portion of the colon. This is a common location for people to have diverticular disease. You also had a small abscess in the area of diverticulitis. You were treated with diet restriction, IV fluids, and IV antibiotics. Your symptoms improved with the above. A diet was resumed and gradually increased. You tolerated this well. General surgery followed along during your stay and provided geiger recommendations for your care. Recommendations - 1. Antibiotics - * cefdinir 300mg twice daily x 10 days * metronidazole 500mg three times daily x 10 days * the metronidazole can sometimes cause a metallic taste in your mouth; this is a common side effect * the metronidazole can sometimes cause nausea in some individuals as well an * do not drink alcohol at any time while on these antibiotics 2. For heartburn - * pantoprazole 40mg once daily x 2 weeks * carafate (sucralfate) 1gm up to 3 times daily as needed for heartburn symptoms 3. Diet - Please continue on a full liquid diet through tomorrow, 01/27/23 (this includes foods you can eat with a spoon like pudding, yogurts, smoothies, soups). See full liquid handout. Starting 01/28/23 you may initiate a low fiber diet. Stay on the low fiber diet for at least 10 days. See low fiber diet handout. 4. It is fairly common to have liquid type stools for several days as you recover from diverticulitis. 5. You should have an outpatient colonoscopy within 8 weeks. Please see [facility] for this. 6. Discontinue the prior amoxicillin-clavulanate antibiotic you were previously taking. 7. Follow-up - see separate section. 8. NO FIBER SUPPLEMENTS (metamucil, citrucel, etc) for 3 weeks. Return to [facility] if - * you have fevers over 100 degrees * you have recurrent, worsening abdominal pain * you have severe diarrhea * you have blood in your stools * you have nausea/vomiting * any other concerns It was our pleasure to care for you! -Dr Mcduffie Pending Studies at Discharge: Yes Studies:: blood cultures but thus far negative (no blood stream infection) Stand-Alone Forms: [facility] Xhale, Work/School Release, Smoking Cessation Medications and DC Order Prescriptions: New cefdinir 300 mg capsule 300 mg PO BID 10 Days Qty: 20 0RF Rx Instructions: start pm of 01/26/23. metronidazole 500 mg tablet 500 mg PO TID 10 Days Qty: 30 0RF Rx Instructions: start afternoon of 01/26/23. pantoprazole [Protonix] 40 mg tablet,delayed release (DR/EC) 40 mg PO DAILY Qty: 14 0RF sucralfate [Carafate] 1 gram tablet 1 g PO AC PRN (Reason: reflux symptoms/heartburn) Qty: 30 0RF Continued (DME) [facility] [place] See Rx Instructions .MEDSUPPLY Qty: 1 0RF Rx Instructions: As directed acetaminophen 500 mg capsule 1,000 mg PO TID 30 Days Qty: 180 0RF Rx Instructions: Take 3 times per day to lessen pain. multivitamin [Multiple Vitamins] tablet 1 tab PO DAILY atorvastatin 20 mg Tablet 20 mg PO HS montelukast [Singulair] 10 mg Tablet 10 mg PO DAILY PRN (Reason: ALLERGY RELIEF) lisinopril 40 mg Tablet 40 mg PO QPM cyclobenzaprine 5 mg Tablet 5 mg PO DAILY PRN (Reason: Pain) melatonin 10 mg Tablet 10 - 20 mg PO HS PRN (Reason: Sleep) cholecalciferol (vitamin D3) [Vitamin D3] 50 mcg (2,000 unit) Capsule 50 mcg PO QAM coQ10 (ubiquinol) 200 mg Capsule 200 mg PO QPM Probiotic 15 billion cell Capsule 1 cap PO QPM amlodipine 2.5 mg tablet 2.5 mg PO QAM clobetasol 0.05 % ointment 1 applic TOPICAL DAILY calcipotriene 0.005 % ointment 1 applic TOPICAL DAILY Multaq 400 mg tablet 400 mg PO BID Rx Instructions: 4AM AND 4PM rivaroxaban 20 mg tablet 20 mg PO QPM Qty: 1 0RF Rx Instructions: resume 01/27/23. Held Red Wine Supplement 1 cap PO QAM Hold Instructions: hold until you are off your antibiotics. Discontinued amoxicillin-pot clavulanate 875-125 mg tablet 1 tab PO BID Rx Instructions: Start Date 01/19/23 - End Date 01/26/23 Discharge Orders: Discharge Order (Routine); Ordered 01/26/23 Ordered By: Arnulfo Nick/Other Patient Handouts: Low-Fiber Diet, Diverticulosis and Diverticulitis, ED Full Liquid Diet Admission Data Admit Date/Time: 01/22/23 18:45 Attending Provider: Arnulfo Mcduffie Admit Provider: Dean Bland Primary Care Provider: Brandie Welsh Other Providers: Alan Cisneros ; Arnulfo Nguyen Other Interventions: Discharge Summary Assessment (RN) Last Done: 01/26/23 12:46 Coding Level of Care Code 46798 INP/OBS DISCH >30 MIN Diagnoses Diverticulitis of intestine with abscess K57.80 Atrial fibrillation I48.91 GERD (gastroesophageal reflux disease) K21.9 Hyperlipidemia E78.5 HTN (hypertension) I10 Morbid obesity with BMI of 40.0-44.9, adult E66.01; Z68.41
== END 2023-01-26 14:53 | disposition home or self-care (01) | DRG 392 ==
LOC: ED 16:03 → SUATTDRO 18:45 → 3N 18:45
DX: Z88.1 Allergy status to other antibiotic agents; Z79.899 Other long term (current) drug therapy; G47.30 Sleep apnea, unspecified; K21.9 Gastro-esophageal reflux disease without esophagitis; Z79.01 Long term (current) use of anticoagulants; I48.0 Paroxysmal atrial fibrillation; E78.5 Hyperlipidemia, unspecified; I10 Essential (primary) hypertension; K57.20 Diverticulitis of large intestine with perforation and abscess without bleeding; L40.9 Psoriasis, unspecified